=== PATIENT | female | born 2000 | race Caucasian/White ===

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

== ENCOUNTER 2019-04-28 17:49 | Emergency (ER) | payer SELFPAY ==
[~2019-04-28] VITALS: Ht 157.4 cm; Wt 81.6 kg
--- NOTE | ~2019-04-28 | EKG ---
[place], [place] ELECTROCARDIOGRAM REPORT NAME: BENJAMÍN PUENTE UNIT #: [id number] ROOM: DOCTOR: EPIPHANY DRAFT REPORT BIRTHDATE: [address] 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
[~2019-04-28 17:49] MED LIST changes: +NAPROSYN500 MG PO; +PROZAC10 MG PO; +ZANTAC 150150 MG PO
[2019-04-28 17:57] VITALS: BP 126/88
[2019-04-28 18:38] LABS: BASO % 0.3 % (0.0-1.0); EOS # 0.9 10*3/uL (0.0-0.4); HEMATOCRIT 44.4 % (37.0-47.0); HEMOGLOBIN 14.2 g/dl (12.0-16.0); LYMPH # 2.4 10*3/uL (1.3-4.4); LYMPH % 18.9 % (27.0-41.0); MEAN CELL VOLUME 87.2 fl (81.0-99.0); MEAN CORPUSCULAR HGB 27.9 pg (27.0-31.0); MEAN PLATELET VOLUME 10.2 fl (9.6-12.3); MONO # 0.6 10*3/uL (0.1-1.0); MONO % 5.1 % (3.0-9.0); NEUT # 8.6 10*3/uL (2.3-7.9); NEUT % 68.5 % (47.0-73.0); PLATELET COUNT AUTOMATED 349 10*3/uL (130-400); RED BLOOD COUNT 5.09 10*6/uL (4.10-5.10); RED CELL DISTRI WIDTH 12.8 % (0-14.5); WHITE BLOOD COUNT 12.6 10*3/uL (4.8-10.8)
[2019-04-28 18:52] LABS: INTERNATIONAL NORM RATIO 0.9 (2.0-3.5)
[2019-04-28 19:08] LABS: ALBUMIN 3.5 gm/dl (3.1-4.5); ALKALINE PHOSPHATASE 70 U/L (45-117); BUN 8 mg/dl (7-24); CHLORIDE 108 mmol/L (98-107); CREATININE 0.73 mg/dL (0.55-1.02); LIPASE 98 U/L (73-393); POTASSIUM 3.6 mmol/L (3.5-5.1); SGOT/AST 16 IU/L (3-35); SGPT/ALT 24 U/L (12-78); SODIUM 141 mmol/L (136-145); TOTAL PROTEIN 7.6 gm/dL (6.4-8.2)
[2019-04-28 19:11] LABS: TROPONIN I < 0.015 ng/ml (<0.045)
[2019-04-28] MEDS ORDERED: PEPCID20 MG PO (19:46)
[2019-04-28] MEDS ORDERED: CEPHALEXIN500 M1 PO (20:00)
== END 2019-04-28 20:05 | disposition home or self-care (01) ==
LOC: ED 17:49
PROVIDERS: Physician Assistant
DX: R07.9 Chest pain, unspecified (principal); R10.10 Upper abdominal pain, unspecified; K21.9 Gastro-esophageal reflux disease without esophagitis

== ENCOUNTER 2019-05-05 14:47 | Emergency (ER) | payer SELFPAY ==
[~2019-05-05] VITALS: Ht 157.4 cm; Wt 77.1 kg
[2019-05-05 14:47] VITALS: BP 145/94
[~2019-05-05 14:47] MED LIST changes: +CEPHALEXIN500 M1 PO; +PEPCID20 MG PO
[2019-05-05 15:46] LABS: BILIRUBIN NEGATIVE (NEGATIVE); BLOOD NEGATIVE (NEGATIVE); CLARITY CLEAR (CLEAR); COLOR YELLOW (YELLOW); GLUCOSE NEGATIVE (NEGATIVE); KETONE NEGATIVE (NEGATIVE); LEUKO ESTERASE NEGATIVE (NEGATIVE); NITRITE NEGATIVE (NEGATIVE); UROBILINOGEN 0.2 E.U./dl (0.2-1.0)
[2019-05-05 15:46] LABS: BASO % 0.3 % (0.0-1.0); EOS # 0.9 10*3/uL (0.0-0.4); EOS % 7.8 % (1.0-4.0); HEMATOCRIT 45.2 % (37.0-47.0); HEMOGLOBIN 14.5 g/dl (12.0-16.0); LYMPH # 1.9 10*3/uL (1.3-4.4); LYMPH % 17.6 % (27.0-41.0); MEAN CELL VOLUME 86.3 fl (81.0-99.0); MEAN CORPUSCULAR HGB 27.7 pg (27.0-31.0); MEAN CORPUSCULAR HGB CONC 32.1 g/dl (33.0-37.0); MEAN PLATELET VOLUME 10.4 fl (9.6-12.3); MONO # 0.5 10*3/uL (0.1-1.0); MONO % 4.7 % (3.0-9.0); NEUT # 7.6 10*3/uL (2.3-7.9); NEUT % 69.4 % (47.0-73.0); PLATELET COUNT AUTOMATED 294 10*3/uL (130-400); RED BLOOD COUNT 5.24 10*6/uL (4.10-5.10); RED CELL DISTRI WIDTH 12.8 % (0-14.5); WHITE BLOOD COUNT 10.9 10*3/uL (4.8-10.8)
[2019-05-05 15:57] LABS: MUCOUS 1+; WBC 0-2 wbc/hpf (0-5)
[2019-05-05 16:02] LABS: ALBUMIN 3.7 gm/dl (3.1-4.5); ALKALINE PHOSPHATASE 64 U/L (45-117); BUN 10 mg/dl (7-24); CHLORIDE 107 mmol/L (98-107); CREATININE 0.71 mg/dL (0.55-1.02); LIPASE 106 U/L (73-393); POTASSIUM 3.4 mmol/L (3.5-5.1); SGOT/AST 14 IU/L (3-35); SGPT/ALT 22 U/L (12-78); SODIUM 140 mmol/L (136-145); TOTAL PROTEIN 7.8 gm/dL (6.4-8.2)
== END 2019-05-05 16:47 | disposition home or self-care (01) ==
LOC: ED 14:47
PROVIDERS: Nurse Practitioner Family
DX: R10.30 Lower abdominal pain, unspecified (principal)

== ENCOUNTER 2019-06-08 22:51 | Emergency (ER) | payer SELFPAY ==
[~2019-06-08] VITALS: Ht 157.4 cm; Wt 81.6 kg
[2019-06-08 22:55] VITALS: BP 143/83
[2019-06-09] MEDS ORDERED: Motrin,Rufen800 MG PO (00:37)
== END 2019-06-09 01:20 | disposition home or self-care (01) ==
LOC: ED 22:51
DX: S20.221A Contusion of right back wall of thorax, initial encounter (principal); K21.9 Gastro-esophageal reflux disease without esophagitis; Z79.899 Other long term (current) drug therapy; Z79.2 Long term (current) use of antibiotics; W50.0XXA Accidental hit or strike by another person, initial encounter; Y93.72 Activity, wrestling; Y92.098 Other place in other non-institutional residence as the place of occurrence of the external cause; Y99.8 Other external cause status

== ENCOUNTER 2019-06-14 18:14 | Emergency (ER) | payer SELFPAY ==
[~2019-06-14] VITALS: Ht 154.9 cm; Wt 81.6 kg
[2019-06-14 18:18] VITALS: BP 142/92
== END 2019-06-14 20:33 | disposition home or self-care (01) ==
LOC: ED 18:14
DX: S63.501A Unspecified sprain of right wrist, initial encounter (principal); W06.XXXA Fall from bed, initial encounter; Y93.89 Activity, other specified; Y92.89 Other specified places as the place of occurrence of the external cause; Y99.8 Other external cause status

== ENCOUNTER 2019-06-16 21:48 | Emergency (ER) | payer SELFPAY ==
[~2019-06-16] VITALS: Ht 157.4 cm; Wt 81.6 kg
[2019-06-16 21:51] VITALS: BP 126/83
== END 2019-06-16 23:00 | disposition home or self-care (01) ==
LOC: ED 21:48
DX: M79.641 Pain in right hand (principal); F41.9 Anxiety disorder, unspecified; F32.9 Major depressive disorder, single episode, unspecified; K21.9 Gastro-esophageal reflux disease without esophagitis; Z79.899 Other long term (current) drug therapy; Z72.0 Tobacco use

== ENCOUNTER 2019-06-26 22:31 | Emergency (ER) | payer SELFPAY ==
[~2019-06-26] VITALS: Wt 86.2 kg
[2019-06-26 22:37] VITALS: BP 145/97
[2019-06-26 23:10] LABS: BASO # 0.1 10*3/uL (0.0-0.1); BASO % 0.4 % (0.0-1.0); EOS # 0.7 10*3/uL (0.0-0.4); EOS % 4.8 % (1.0-4.0); HEMOGLOBIN 13.3 g/dl (12.0-16.0); LYMPH # 3.3 10*3/uL (1.3-4.4); LYMPH % 23.6 % (27.0-41.0); MEAN CELL VOLUME 87.4 fl (81.0-99.0); MEAN CORPUSCULAR HGB 28.4 pg (27.0-31.0); MEAN CORPUSCULAR HGB CONC 32.4 g/dl (33.0-37.0); MEAN PLATELET VOLUME 10.4 fl (9.6-12.3); MONO # 0.8 10*3/uL (0.1-1.0); NEUT # 9.1 10*3/uL (2.3-7.9); NEUT % 64.9 % (47.0-73.0); PLATELET COUNT AUTOMATED 278 10*3/uL (130-400); RED BLOOD COUNT 4.69 10*6/uL (4.10-5.10); RED CELL DISTRI WIDTH 12.6 % (0-14.5); WHITE BLOOD COUNT 13.9 10*3/uL (4.8-10.8)
[2019-06-26 23:21] LABS: ALBUMIN 3.4 gm/dl (3.1-4.5); ALKALINE PHOSPHATASE 68 U/L (45-117); BUN 11 mg/dl (7-24); CHLORIDE 107 mmol/L (98-107); CREATININE 0.68 mg/dL (0.55-1.02); POTASSIUM 3.8 mmol/L (3.5-5.1); SGOT/AST 10 IU/L (3-35); SGPT/ALT 28 U/L (12-78); SODIUM 140 mmol/L (136-145); TOTAL PROTEIN 7.4 gm/dL (6.4-8.2)
[2019-06-26 23:23] LABS: BILIRUBIN NEGATIVE (NEGATIVE); BLOOD NEGATIVE (NEGATIVE); CLARITY SL CLOUDY (CLEAR); COLOR YELLOW (YELLOW); GLUCOSE NEGATIVE (NEGATIVE); KETONE NEGATIVE (NEGATIVE); LEUKO ESTERASE NEGATIVE (NEGATIVE); NITRITE NEGATIVE (NEGATIVE); SPECIFIC GRAVITY 1.015 (1.005-1.030); UROBILINOGEN 0.2 E.U./dl (0.2-1.0)
[2019-06-26 23:25] LABS: BACTERIA 2+; EPITHELIAL CELLS 30-35; WBC 0-2 wbc/hpf (0-5)
== END 2019-06-26 23:41 | disposition home or self-care (01) ==
LOC: ED 22:31
PROVIDERS: Emergency Medicine
DX: R10.9 Unspecified abdominal pain (principal); K21.9 Gastro-esophageal reflux disease without esophagitis; Z79.2 Long term (current) use of antibiotics; Z79.899 Other long term (current) drug therapy

== ENCOUNTER 2019-07-01 02:11 | Emergency (ER) | payer OTHER ==
[~2019-07-01] VITALS: Ht 157.4 cm; Wt 81.6 kg
[2019-07-01 05:49] VITALS: BP 118/74
== END 2019-07-01 06:18 | disposition home or self-care (01) ==
LOC: ED 02:11
DX: J06.9 Acute upper respiratory infection, unspecified (principal)

== ENCOUNTER 2019-07-06 21:28 | Emergency (ER) | payer OTHER ==
[~2019-07-06] VITALS: Ht 157.4 cm; Wt 81.6 kg
[2019-07-06 21:33] VITALS: BP 133/78
[2019-07-06 22:44] LABS: BASO % 0.4 % (0.0-1.0); EOS # 0.7 10*3/uL (0.0-0.4); EOS % 8.1 % (1.0-4.0); HEMATOCRIT 41.9 % (37.0-47.0); HEMOGLOBIN 13.5 g/dl (12.0-16.0); LYMPH % 36.1 % (27.0-41.0); MEAN CELL VOLUME 87.3 fl (81.0-99.0); MEAN CORPUSCULAR HGB 28.1 pg (27.0-31.0); MEAN CORPUSCULAR HGB CONC 32.2 g/dl (33.0-37.0); MEAN PLATELET VOLUME 10.1 fl (9.6-12.3); MONO # 0.5 10*3/uL (0.1-1.0); MONO % 5.9 % (3.0-9.0); NEUT # 4.1 10*3/uL (2.3-7.9); NEUT % 49.4 % (47.0-73.0); PLATELET COUNT AUTOMATED 264 10*3/uL (130-400); RED CELL DISTRI WIDTH 12.8 % (0-14.5); WHITE BLOOD COUNT 8.3 10*3/uL (4.8-10.8)
[2019-07-06 22:59] LABS: ALBUMIN 3.4 gm/dl (3.1-4.5); ALKALINE PHOSPHATASE 68 U/L (45-117); BUN 9 mg/dl (7-24); CHLORIDE 108 mmol/L (98-107); CREATININE 0.65 mg/dL (0.55-1.02); LIPASE 167 U/L (73-393); POTASSIUM 3.8 mmol/L (3.5-5.1); SGOT/AST 18 IU/L (3-35); SGPT/ALT 33 U/L (12-78); SODIUM 139 mmol/L (136-145); TOTAL PROTEIN 7.4 gm/dL (6.4-8.2)
[2019-07-06 23:16] LABS: BILIRUBIN NEGATIVE (NEGATIVE); BLOOD 3+ (NEGATIVE); CLARITY SL CLOUDY (CLEAR); COLOR YELLOW (YELLOW); GLUCOSE NEGATIVE (NEGATIVE); KETONE NEGATIVE (NEGATIVE); PH 7.5 (5.0-9.0); SPECIFIC GRAVITY 1.015 (1.005-1.030)
[2019-07-06 23:17] LABS: LEUKO ESTERASE NEGATIVE (NEGATIVE); NITRITE NEGATIVE (NEGATIVE); UROBILINOGEN 0.2 E.U./dl (0.2-1.0)
[2019-07-06 23:28] LABS: BACTERIA 1+; RBC 41-50 rbc/hpf (0-2)
[2019-07-06] MEDS ORDERED: ZOFRAN4 MG PO (23:44)
[2019-07-07] MEDS ORDERED: ZOFRAN4 MG PO (00:06)
== END 2019-07-07 00:23 | disposition home or self-care (01) ==
LOC: ED 21:28
PROVIDERS: Physician Assistant
DX: A08.4 Viral intestinal infection, unspecified (principal); K62.5 Hemorrhage of anus and rectum; K21.9 Gastro-esophageal reflux disease without esophagitis; F32.9 Major depressive disorder, single episode, unspecified; F41.9 Anxiety disorder, unspecified; Z79.899 Other long term (current) drug therapy

== ENCOUNTER 2019-07-09 22:00 | Emergency (ER) | payer OTHER ==
[~2019-07-09] VITALS: Ht 157.4 cm; Wt 81.6 kg
[~2019-07-09 22:00] MED LIST changes: +ZOFRAN4 MG PO
[2019-07-09 22:05] VITALS: BP 140/80
[2019-07-10] MEDS ORDERED: Motrin,Rufen800 MG PO (00:38)
== END 2019-07-10 00:55 | disposition home or self-care (01) ==
LOC: ED 22:00
DX: S09.90XA Unspecified injury of head, initial encounter (principal); F41.9 Anxiety disorder, unspecified; F32.9 Major depressive disorder, single episode, unspecified; K21.9 Gastro-esophageal reflux disease without esophagitis; Z79.899 Other long term (current) drug therapy; W22.8XXA Striking against or struck by other objects, initial encounter; Y93.89 Activity, other specified; Y92.89 Other specified places as the place of occurrence of the external cause; Y99.8 Other external cause status

== ENCOUNTER 2019-07-14 01:20 | Emergency (ER) | payer OTHER ==
[~2019-07-14] VITALS: Ht 157.4 cm; Wt 81.6 kg
[2019-07-14 01:21] VITALS: BP 131/77
[2019-07-14] MEDS ORDERED: Motrin,Rufen800 MG PO (03:08)
== END 2019-07-14 05:01 | disposition home or self-care (01) ==
LOC: ED 01:20
DX: S80.02XA Contusion of left knee, initial encounter (principal); K21.9 Gastro-esophageal reflux disease without esophagitis; Z79.899 Other long term (current) drug therapy; Z79.2 Long term (current) use of antibiotics; W01.0XXA Fall on same level from slipping, tripping and stumbling without subsequent striking against object, initial encounter; Y93.E8 Activity, other personal hygiene; Y92.091 Bathroom in other non-institutional residence as the place of occurrence of the external cause; Y99.8 Other external cause status

== ENCOUNTER 2019-07-24 01:12 | Emergency (ER) | payer OTHER ==
[~2019-07-24] VITALS: Ht 157.4 cm; Wt 83.5 kg
[2019-07-24 01:17] VITALS: BP 135/83
== END 2019-07-24 02:27 | disposition home or self-care (01) ==
LOC: ED 01:12
DX: Z32.02 Encounter for pregnancy test, result negative (principal)

== ENCOUNTER → 2019-08-06 | Outpatient (CLI) | payer OTHER ==
[~2019-08-06] MED LIST changes: +ATIVAN1 MG PO; +CITALOPRAM HYDR10 MG PO; +HYDROXYZINE PAM25 M1 PO; +NAPROSYN EC375 MG PO; +TYLENOL325 M1 PO
== END | disposition home or self-care (01) ==
LOC: RESCLI 00:44
DX: K21.9 Gastro-esophageal reflux disease without esophagitis (principal); M25.562 Pain in left knee; F41.9 Anxiety disorder, unspecified; M21.069 Valgus deformity, not elsewhere classified, unspecified knee; H50.9 Unspecified strabismus; F17.200 Nicotine dependence, unspecified, uncomplicated; Z98.890 Other specified postprocedural states; Z79.899 Other long term (current) drug therapy

== ENCOUNTER 2019-08-09 21:39 | Emergency (ER) | payer OTHER ==
[~2019-08-09 21:39] MED LIST changes: -ATIVAN1 MG PO; -CITALOPRAM HYDR10 MG PO; -HYDROXYZINE PAM25 M1 PO; -NAPROSYN EC375 MG PO; -TYLENOL325 M1 PO
[2019-08-09 21:45] VITALS: BP 135/74
[2019-08-09 22:58] LABS: BASO % 0.3 % (0.0-1.0); EOS # 0.7 10*3/uL (0.0-0.4); EOS % 5.3 % (1.0-4.0); HEMATOCRIT 37.6 % (37.0-47.0); HEMOGLOBIN 12.2 g/dl (12.0-16.0); LYMPH # 2.6 10*3/uL (1.3-4.4); LYMPH % 19.7 % (27.0-41.0); MEAN CELL VOLUME 86.2 fl (81.0-99.0); MEAN CORPUSCULAR HGB CONC 32.4 g/dl (33.0-37.0); MEAN PLATELET VOLUME 9.9 fl (9.6-12.3); MONO # 0.7 10*3/uL (0.1-1.0); MONO % 5.6 % (3.0-9.0); NEUT # 9.2 10*3/uL (2.3-7.9); NEUT % 68.9 % (47.0-73.0); PLATELET COUNT AUTOMATED 299 10*3/uL (130-400); RED BLOOD COUNT 4.36 10*6/uL (4.10-5.10); RED CELL DISTRI WIDTH 12.8 % (0-14.5); WHITE BLOOD COUNT 13.3 10*3/uL (4.8-10.8)
[2019-08-09 23:14] LABS: BUN 12 mg/dl (7-24); CHLORIDE 107 mmol/L (98-107); CREATININE 0.71 mg/dL (0.55-1.02); POTASSIUM 3.6 mmol/L (3.5-5.1); SODIUM 137 mmol/L (136-145)
[2019-08-09 23:17] LABS: TROPONIN I < 0.015 ng/ml (<0.045)
[2019-08-10] MEDS ORDERED: TYLENOL325 M1 PO (00:08)
[2019-08-10] MEDS ORDERED: NAPROSYN EC375 MG PO (00:08)
== END 2019-08-10 00:07 | disposition home or self-care (01) ==
LOC: ED 21:39
PROVIDERS: Emergency Medicine Emergency Medical Services
DX: M94.0 Chondrocostal junction syndrome [Tietze] (principal); K21.9 Gastro-esophageal reflux disease without esophagitis; F17.200 Nicotine dependence, unspecified, uncomplicated; Z79.899 Other long term (current) drug therapy; Z79.2 Long term (current) use of antibiotics; Z98.890 Other specified postprocedural states

== ENCOUNTER 2019-08-11 17:02 | Emergency (ER) | payer OTHER ==
[~2019-08-11] VITALS: Ht 157.4 cm; Wt 99.8 kg
[~2019-08-11 17:02] MED LIST changes: +NAPROSYN EC375 MG PO; +TYLENOL325 M1 PO
[2019-08-11 17:06] VITALS: BP 128/75
== END 2019-08-11 18:38 | disposition home or self-care (01) ==
LOC: ED 17:02
DX: M79.662 Pain in left lower leg (principal); E66.9 Obesity, unspecified; K21.9 Gastro-esophageal reflux disease without esophagitis

== ENCOUNTER 2019-08-17 02:51 | Emergency (ER) | payer OTHER ==
[~2019-08-17] VITALS: Ht 157.4 cm; Wt 94.8 kg
[2019-08-17 02:53] VITALS: BP 162/51
[2019-08-17] MEDS ORDERED: HYDROXYZINE PAM25 M1 PO (02:54)
[2019-08-17] MEDS ORDERED: CITALOPRAM HYDR10 MG PO (02:54)
[2019-08-17 03:32] LABS: BASO % 0.4 % (0.0-1.0); EOS % 10.4 % (1.0-4.0); HEMATOCRIT 42.7 % (37.0-47.0); HEMOGLOBIN 13.8 g/dl (12.0-16.0); LYMPH # 3.1 10*3/uL (1.3-4.4); LYMPH % 30.8 % (27.0-41.0); MEAN CELL VOLUME 86.3 fl (81.0-99.0); MEAN CORPUSCULAR HGB 27.9 pg (27.0-31.0); MEAN CORPUSCULAR HGB CONC 32.3 g/dl (33.0-37.0); MEAN PLATELET VOLUME 9.9 fl (9.6-12.3); MONO # 0.5 10*3/uL (0.1-1.0); MONO % 5.3 % (3.0-9.0); NEUT # 5.3 10*3/uL (2.3-7.9); NEUT % 52.9 % (47.0-73.0); PLATELET COUNT AUTOMATED 313 10*3/uL (130-400); RED BLOOD COUNT 4.95 10*6/uL (4.10-5.10); RED CELL DISTRI WIDTH 12.6 % (0-14.5); WHITE BLOOD COUNT 9.9 10*3/uL (4.8-10.8)
[2019-08-17 03:47] LABS: ACETAMINOPHEN (TYLENOL) < 5.0 ug/ml (10-30); ALBUMIN 3.8 gm/dl (3.1-4.5); ALKALINE PHOSPHATASE 62 U/L (45-117); BUN 10 mg/dl (7-24); CHLORIDE 106 mmol/L (98-107); CREATININE 0.66 mg/dL (0.55-1.02); POTASSIUM 3.4 mmol/L (3.5-5.1); SGOT/AST 17 IU/L (3-35); SGPT/ALT 31 U/L (12-78); SODIUM 138 mmol/L (136-145); TOTAL PROTEIN 7.9 gm/dL (6.4-8.2)
[2019-08-17 03:52] LABS: ETHYL ALCOHOL < 3.0 mg/dl (<3)
[2019-08-17 04:02] LABS: URINE AMPHETAMINES < 1000 (1000ng/ml); URINE BARBITURATES < 200 (200ng/ml); URINE BENZODIAZEPINES < 200 (200ng/ml); URINE CANNABINOIDS (THC) < 50 (50ng/ml); URINE COCAINE < 300 (300ng/ml); URINE METHADONE < 300 (300ng/ml); URINE OPIATES < 300 (300ng/ml)
[2019-08-17] MEDS ORDERED: ATIVAN1 MG PO (04:06)
[2019-08-17 04:09] LABS: URINE PHENCYCLIDINE < 25 (25ng/ml)
[2019-08-17 04:14] LABS: BILIRUBIN NEGATIVE (NEGATIVE); BLOOD NEGATIVE (NEGATIVE); CLARITY CLEAR (CLEAR); COLOR YELLOW (YELLOW); GLUCOSE NEGATIVE (NEGATIVE); KETONE NEGATIVE (NEGATIVE); LEUKO ESTERASE NEGATIVE (NEGATIVE); NITRITE NEGATIVE (NEGATIVE); RBC 0-2 rbc/hpf (0-2); SPECIFIC GRAVITY 1.015 (1.005-1.030); UROBILINOGEN 0.2 E.U./dl (0.2-1.0); WBC 0-2 wbc/hpf (0-5)
== END 2019-08-17 04:14 ==
LOC: ED 02:51
PROVIDERS: Emergency Medicine Emergency Medical Services
DX: F41.0 Panic disorder [episodic paroxysmal anxiety] (principal); F17.200 Nicotine dependence, unspecified, uncomplicated; Z79.899 Other long term (current) drug therapy

== ENCOUNTER 2019-09-15 00:25 | Emergency (ER) | payer OTHER ==
[~2019-09-15] VITALS: Ht 157.4 cm; Wt 96.6 kg
[~2019-09-15 00:25] MED LIST changes: +ATIVAN1 MG PO; +CITALOPRAM HYDR10 MG PO; +HYDROXYZINE PAM25 M1 PO
[2019-09-15 00:33] VITALS: BP 133/82
[2019-09-15 00:49] LABS: CLARITY CLEAR (CLEAR); COLOR YELLOW (YELLOW)
[2019-09-15 00:53] LABS: BILIRUBIN NEGATIVE (NEGATIVE); BLOOD TRACE-INTACT (NEGATIVE); GLUCOSE NEGATIVE (NEGATIVE); KETONE NEGATIVE (NEGATIVE); LEUKO ESTERASE TRACE (NEGATIVE); NITRITE NEGATIVE (NEGATIVE); SPECIFIC GRAVITY 1.025 (1.005-1.030); UROBILINOGEN 0.2 E.U./dl (0.2-1.0)
[2019-09-15 00:57] LABS: BACTERIA 1+
[2019-09-15 00:58] LABS: MUCOUS 1+
[2019-09-15] MEDS ORDERED: MACROBID100 M1 PO (01:10)
== END 2019-09-15 01:25 | disposition home or self-care (01) ==
LOC: ED 00:25
PROVIDERS: Emergency Medicine Emergency Medical Services
DX: R82.71 Bacteriuria (principal); R10.30 Lower abdominal pain, unspecified; K21.9 Gastro-esophageal reflux disease without esophagitis; Z79.899 Other long term (current) drug therapy; Z98.890 Other specified postprocedural states

== ENCOUNTER 2019-09-17 19:40 | Emergency (ER) | payer OTHER ==
[~2019-09-17] VITALS: Ht 157.4 cm; Wt 99.8 kg
[~2019-09-17 19:40] MED LIST changes: +MACROBID100 M1 PO
[2019-09-17 20:52] LABS: BILIRUBIN NEGATIVE (NEGATIVE); CLARITY CLEAR (CLEAR); COLOR YELLOW (YELLOW); GLUCOSE NEGATIVE (NEGATIVE); KETONE NEGATIVE (NEGATIVE)
[2019-09-17 20:53] LABS: BACTERIA TRACE; BLOOD NEGATIVE (NEGATIVE); EPITHELIAL CELLS 16-20; LEUKO ESTERASE NEGATIVE (NEGATIVE); NITRITE NEGATIVE (NEGATIVE); UROBILINOGEN 0.2 E.U./dl (0.2-1.0)
[2019-09-18] MEDS ORDERED: PROTONIX40 MG PO (21:51)
== END 2019-09-17 21:06 | disposition home or self-care (01) ==
LOC: ED 19:40
PROVIDERS: Emergency Medicine
DX: R19.7 Diarrhea, unspecified (principal); R11.10 Vomiting, unspecified; F41.9 Anxiety disorder, unspecified; F32.9 Major depressive disorder, single episode, unspecified; K21.9 Gastro-esophageal reflux disease without esophagitis; F17.200 Nicotine dependence, unspecified, uncomplicated; Z79.899 Other long term (current) drug therapy; Z79.2 Long term (current) use of antibiotics

== ENCOUNTER 2019-09-18 20:48 | Emergency (ER) | payer OTHER ==
[~2019-09-18] VITALS: Wt 97.5 kg
[2019-09-18 20:56] VITALS: BP 138/81
[2019-09-18 21:31] LABS: BASO % 0.4 % (0.0-1.0); EOS % 9.1 % (1.0-4.0); HEMATOCRIT 39.1 % (37.0-47.0); LYMPH # 2.9 10*3/uL (1.3-4.4); LYMPH % 25.9 % (27.0-41.0); MEAN CELL VOLUME 85.6 fl (81.0-99.0); MEAN CORPUSCULAR HGB 27.8 pg (27.0-31.0); MEAN CORPUSCULAR HGB CONC 32.5 g/dl (33.0-37.0); MEAN PLATELET VOLUME 9.8 fl (9.6-12.3); MONO # 0.7 10*3/uL (0.1-1.0); NEUT # 6.6 10*3/uL (2.3-7.9); NEUT % 58.3 % (47.0-73.0); PLATELET COUNT AUTOMATED 302 10*3/uL (130-400); RED BLOOD COUNT 4.57 10*6/uL (4.10-5.10); RED CELL DISTRI WIDTH 12.7 % (0-14.5); WHITE BLOOD COUNT 11.4 10*3/uL (4.8-10.8)
[2019-09-18 21:47] LABS: ALBUMIN 3.3 gm/dl (3.1-4.5); ALKALINE PHOSPHATASE 64 U/L (45-117); BUN 9 mg/dl (7-24); CHLORIDE 106 mmol/L (98-107); CREATININE 0.72 mg/dL (0.55-1.02); LIPASE 126 U/L (73-393); POTASSIUM 3.6 mmol/L (3.5-5.1); SGOT/AST 20 IU/L (3-35); SGPT/ALT 40 U/L (12-78); SODIUM 138 mmol/L (136-145); TOTAL PROTEIN 7.5 gm/dL (6.4-8.2)
[2019-09-18] MEDS ORDERED: PROTONIX40 MG PO (21:51)
== END 2019-09-18 21:53 | disposition home or self-care (01) ==
LOC: ED 20:48
PROVIDERS: Emergency Medicine
DX: K29.70 Gastritis, unspecified, without bleeding (principal); F41.9 Anxiety disorder, unspecified; F32.9 Major depressive disorder, single episode, unspecified; K21.9 Gastro-esophageal reflux disease without esophagitis; Z79.899 Other long term (current) drug therapy

== ENCOUNTER 2019-09-26 20:05 | Emergency (ER) | payer OTHER ==
[~2019-09-26] VITALS: Wt 99.8 kg
[~2019-09-26 20:05] MED LIST changes: +PROTONIX40 MG PO
[2019-09-26 20:20] VITALS: BP 135/85
== END 2019-09-26 20:53 | disposition home or self-care (01) ==
LOC: ED 20:05
DX: S09.90XA Unspecified injury of head, initial encounter (principal); F41.9 Anxiety disorder, unspecified; F32.9 Major depressive disorder, single episode, unspecified; K21.9 Gastro-esophageal reflux disease without esophagitis; Z79.899 Other long term (current) drug therapy; W22.09XA Striking against other stationary object, initial encounter; Y93.89 Activity, other specified; Y92.89 Other specified places as the place of occurrence of the external cause; Y99.8 Other external cause status

== ENCOUNTER 2019-10-08 23:00 | Emergency (ER) | payer OTHER ==
[~2019-10-08] VITALS: Ht 157.4 cm; Wt 101.6 kg
[2019-10-08 23:01] VITALS: BP 143/58
== END 2019-10-09 00:47 | disposition home or self-care (01) ==
LOC: ED 23:00
DX: F41.0 Panic disorder [episodic paroxysmal anxiety] (principal); F41.9 Anxiety disorder, unspecified; F17.200 Nicotine dependence, unspecified, uncomplicated; Z79.899 Other long term (current) drug therapy; Z32.02 Encounter for pregnancy test, result negative

== ENCOUNTER 2019-10-20 00:05 | Emergency (ER) | payer OTHER ==
[~2019-10-20] VITALS: Ht 157.4 cm; Wt 99.8 kg
[2019-10-20 01:37] LABS: BILIRUBIN NEGATIVE (NEGATIVE); BLOOD NEGATIVE (NEGATIVE); CLARITY CLEAR (CLEAR); COLOR YELLOW (YELLOW); GLUCOSE NEGATIVE (NEGATIVE); KETONE NEGATIVE (NEGATIVE); LEUKO ESTERASE 1+ (NEGATIVE); NITRITE NEGATIVE (NEGATIVE); PH 7.5 (5.0-9.0); SPECIFIC GRAVITY 1.005 (1.005-1.030); UROBILINOGEN 0.2 E.U./dl (0.2-1.0)
[2019-10-20 01:41] LABS: BACTERIA 1+; EPITHELIAL CELLS 21-30
[2019-10-20] MEDS ORDERED: MACROBID100 M1 PO (01:44)
[2019-10-20 01:49] VITALS: BP 126/78
== END 2019-10-20 01:55 | disposition home or self-care (01) ==
LOC: ED 00:05
PROVIDERS: Emergency Medicine Emergency Medical Services
DX: N39.0 Urinary tract infection, site not specified (principal); K21.9 Gastro-esophageal reflux disease without esophagitis; F32.9 Major depressive disorder, single episode, unspecified; F41.9 Anxiety disorder, unspecified; F17.200 Nicotine dependence, unspecified, uncomplicated; Z79.899 Other long term (current) drug therapy; Z98.890 Other specified postprocedural states; M79.89 Other specified soft tissue disorders

== ENCOUNTER 2019-10-26 14:42 | Emergency (ER) | payer OTHER ==
[~2019-10-26] VITALS: Ht 157.4 cm; Wt 99.8 kg
[2019-10-26 14:50] VITALS: BP 118/84
== END 2019-10-26 15:20 | disposition home or self-care (01) ==
LOC: ED 14:42
DX: M77.8 Other enthesopathies, not elsewhere classified (principal); Z79.899 Other long term (current) drug therapy

== ENCOUNTER 2019-10-31 02:50 | Emergency (ER) | payer OTHER ==
[~2019-10-31] VITALS: Ht 157.4 cm; Wt 99.8 kg
[2019-10-31 02:54] VITALS: BP 133/89
== END 2019-10-31 03:30 | disposition left against medical advice (07) ==
LOC: ED 02:50
DX: R42 Dizziness and giddiness (principal); K21.9 Gastro-esophageal reflux disease without esophagitis; Z79.899 Other long term (current) drug therapy

== ENCOUNTER 2019-11-04 16:25 | Emergency (ER) | payer OTHER ==
[~2019-11-04] VITALS: Ht 157.4 cm; Wt 99.8 kg
[2019-11-04 16:33] VITALS: BP 136/98
[2019-11-04 17:15] LABS: BASO # 0.1 10*3/uL (0.0-0.1); BASO % 0.4 % (0.0-1.0); EOS # 1.2 10*3/uL (0.0-0.4); EOS % 9.5 % (1.0-4.0); HEMATOCRIT 39.8 % (37.0-47.0); LYMPH # 2.9 10*3/uL (1.3-4.4); LYMPH % 23.9 % (27.0-41.0); MEAN CELL VOLUME 84.9 fl (81.0-99.0); MEAN CORPUSCULAR HGB 28.1 pg (27.0-31.0); MEAN CORPUSCULAR HGB CONC 33.2 g/dl (33.0-37.0); MEAN PLATELET VOLUME 9.6 fl (9.6-12.3); MONO # 0.8 10*3/uL (0.1-1.0); MONO % 6.1 % (3.0-9.0); NEUT # 7.4 10*3/uL (2.3-7.9); NEUT % 59.9 % (47.0-73.0); PLATELET COUNT AUTOMATED 299 10*3/uL (130-400); RED BLOOD COUNT 4.69 10*6/uL (4.10-5.10); WHITE BLOOD COUNT 12.3 10*3/uL (4.8-10.8)
[2019-11-04 17:30] LABS: ALBUMIN 3.2 gm/dl (3.1-4.5); ALKALINE PHOSPHATASE 69 U/L (45-117); BUN 10 mg/dl (7-24); CHLORIDE 107 mmol/L (98-107); CREATININE 0.68 mg/dL (0.55-1.02); POTASSIUM 3.7 mmol/L (3.5-5.1); SGOT/AST 21 IU/L (3-35); SGPT/ALT 37 U/L (12-78); SODIUM 139 mmol/L (136-145); TOTAL PROTEIN 7.2 gm/dL (6.4-8.2)
[2019-11-04 17:50] LABS: URINE AMPHETAMINES < 1000 (1000ng/ml); URINE BARBITURATES < 200 (200ng/ml); URINE BENZODIAZEPINES < 200 (200ng/ml); URINE CANNABINOIDS (THC) < 50 (50ng/ml); URINE COCAINE < 300 (300ng/ml); URINE METHADONE < 300 (300ng/ml); URINE OPIATES < 300 (300ng/ml)
[2019-11-04 18:08] LABS: BILIRUBIN NEGATIVE (NEGATIVE); CLARITY SL CLOUDY (CLEAR); COLOR YELLOW (YELLOW); GLUCOSE NEGATIVE (NEGATIVE); KETONE NEGATIVE (NEGATIVE); SPECIFIC GRAVITY 1.005 (1.005-1.030)
[2019-11-04 18:09] LABS: BACTERIA 2+; BLOOD TRACE-INTACT (NEGATIVE); EPITHELIAL CELLS TNTC; LEUKO ESTERASE NEGATIVE (NEGATIVE); NITRITE NEGATIVE (NEGATIVE); PH 8.5 (5.0-9.0); UROBILINOGEN 0.2 E.U./dl (0.2-1.0)
[2019-11-04] MEDS ORDERED: FLONASE ALLERG9.9 ML NAS (18:12)
[2019-11-04] MEDS ORDERED: AUGMENTIN 875-875 MG PO (18:12)
[2019-11-04 18:18] LABS: URINE PHENCYCLIDINE < 25 (25ng/ml)
== END 2019-11-04 19:09 | disposition home or self-care (01) ==
LOC: ED 16:25
PROVIDERS: Nurse Practitioner Family
DX: J01.90 Acute sinusitis, unspecified (principal); R42 Dizziness and giddiness; T45.0X5A Adverse effect of antiallergic and antiemetic drugs, initial encounter; K21.9 Gastro-esophageal reflux disease without esophagitis; Y92.89 Other specified places as the place of occurrence of the external cause

== ENCOUNTER 2019-11-07 02:32 | Emergency (ER) | payer OTHER ==
[~2019-11-07] VITALS: Ht 157.4 cm; Wt 113.4 kg
[~2019-11-07 02:32] MED LIST changes: +AUGMENTIN 875-875 MG PO; +FLONASE ALLERG9.9 ML NAS
[2019-11-07 02:37] VITALS: BP 134/84
== END 2019-11-07 03:27 | disposition home or self-care (01) ==
LOC: ED 02:32
DX: F41.9 Anxiety disorder, unspecified (principal); K21.9 Gastro-esophageal reflux disease without esophagitis; Z79.899 Other long term (current) drug therapy

== ENCOUNTER 2019-11-09 23:39 | Emergency (ER) | payer OTHER ==
[2019-11-09 23:44] VITALS: BP 137/66
[2019-11-10 00:35] LABS: CLARITY SL CLOUDY (CLEAR); COLOR YELLOW (YELLOW)
[2019-11-10 00:36] LABS: BILIRUBIN NEGATIVE (NEGATIVE); BLOOD 1+ (NEGATIVE); GLUCOSE NEGATIVE (NEGATIVE); KETONE NEGATIVE (NEGATIVE); NITRITE NEGATIVE (NEGATIVE); PH 6.5 (5.0-9.0); SPECIFIC GRAVITY 1.025 (1.005-1.030); UROBILINOGEN 0.2 E.U./dl (0.2-1.0)
[2019-11-10 00:37] LABS: LEUKO ESTERASE 2+ (NEGATIVE)
[2019-11-10 00:42] LABS: BACTERIA 4+; EPITHELIAL CELLS TNTC; WBC TNTC wbc/hpf (0-5)
[2019-11-10] MEDS ORDERED: MACROBID100 M1 PO (00:51)
[2019-11-10] MEDS ORDERED: PEPCID20 MG PO (00:51)
== END 2019-11-10 01:37 | disposition home or self-care (01) ==
LOC: ED 23:39
PROVIDERS: Emergency Medicine Emergency Medical Services
DX: N39.0 Urinary tract infection, site not specified (principal); F41.9 Anxiety disorder, unspecified; F32.9 Major depressive disorder, single episode, unspecified; K21.9 Gastro-esophageal reflux disease without esophagitis; Z88.8 Allergy status to other drugs, medicaments and biological substances; Z79.899 Other long term (current) drug therapy

== ENCOUNTER → 2019-11-09 | Emergency (ER) | payer OTHER ==
[~2019-11-09] VITALS: Ht 157.4 cm; Wt 99.8 kg
[2019-11-09 14:15] VITALS: BP 104/54
== END ==
LOC: ED 13:55
DX: R11.2 Nausea with vomiting, unspecified (principal); Z53.21 Procedure and treatment not carried out due to patient leaving prior to being seen by health care provider

== ENCOUNTER 2019-11-13 20:50 | Emergency (ER) | payer OTHER ==
[2019-11-13 20:59] VITALS: BP 136/78
[2019-11-13 22:27] LABS: HEMATOCRIT 38.9 % (37.0-47.0); MEAN CELL VOLUME 86.6 fl (81.0-99.0); MEAN CORPUSCULAR HGB 27.6 pg (27.0-31.0); MEAN CORPUSCULAR HGB CONC 31.9 g/dl (33.0-37.0); MEAN PLATELET VOLUME 9.7 fl (9.6-12.3); PLATELET COUNT AUTOMATED 227 10*3/uL (130-400); RED BLOOD COUNT 4.49 10*6/uL (4.10-5.10); RED CELL DISTRI WIDTH 13.2 % (0-14.5); WHITE BLOOD COUNT 6.7 10*3/uL (4.8-10.8)
[2019-11-13 22:38] LABS: BUN 12 mg/dl (7-24); CHLORIDE 109 mmol/L (98-107); CREATININE 0.83 mg/dL (0.55-1.02); POTASSIUM 3.7 mmol/L (3.5-5.1); SODIUM 141 mmol/L (136-145)
[2019-11-13 22:46] LABS: ATYPICAL LYMPHS 5 % (0-0); BASOPHILS 1 % (0-1); PLATELET SUFFICIENCY NORMAL (NORMAL); TOTAL CELLS COUNTED 100 #CELLS
[2019-11-13 23:29] LABS: BILIRUBIN NEGATIVE (NEGATIVE); BLOOD NEGATIVE (NEGATIVE); CLARITY CLEAR (CLEAR); COLOR YELLOW (YELLOW); GLUCOSE NEGATIVE (NEGATIVE); KETONE NEGATIVE (NEGATIVE); LEUKO ESTERASE NEGATIVE (NEGATIVE); NITRITE NEGATIVE (NEGATIVE); PH 6.5 (5.0-9.0); UROBILINOGEN 0.2 E.U./dl (0.2-1.0)
[2019-11-13 23:34] LABS: BACTERIA TRACE; EPITHELIAL CELLS 21-30
== END 2019-11-14 00:56 | disposition home or self-care (01) ==
LOC: ED 20:50
PROVIDERS: Emergency Medicine
DX: R42 Dizziness and giddiness (principal); F41.9 Anxiety disorder, unspecified; R53.1 Weakness; K21.9 Gastro-esophageal reflux disease without esophagitis; F17.200 Nicotine dependence, unspecified, uncomplicated; Z88.8 Allergy status to other drugs, medicaments and biological substances; Z79.899 Other long term (current) drug therapy

== ENCOUNTER 2019-11-25 15:59 | Emergency (ER) | payer OTHER ==
[~2019-11-25] VITALS: Wt 99.8 kg
[2019-11-25 16:04] VITALS: BP 125/69
== END 2019-11-25 16:38 | disposition home or self-care (01) ==
LOC: ED 15:59
DX: S51.812A Laceration without foreign body of left forearm, initial encounter (principal); E66.9 Obesity, unspecified; F17.200 Nicotine dependence, unspecified, uncomplicated; Z88.8 Allergy status to other drugs, medicaments and biological substances; Z79.899 Other long term (current) drug therapy; W45.8XXA Other foreign body or object entering through skin, initial encounter; Y93.89 Activity, other specified; Y92.89 Other specified places as the place of occurrence of the external cause; Y99.8 Other external cause status

== ENCOUNTER 2019-12-22 23:29 | Emergency (ER) | payer OTHER ==
[~2019-12-22] VITALS: Ht 165.1 cm; Wt 81.6 kg
== END 2019-12-23 02:13 | disposition home or self-care (01) ==
LOC: ED 23:29
DX: S80.01XA Contusion of right knee, initial encounter (principal); Z88.8 Allergy status to other drugs, medicaments and biological substances; Z79.899 Other long term (current) drug therapy; W19.XXXA Unspecified fall, initial encounter; Y93.89 Activity, other specified; Y92.89 Other specified places as the place of occurrence of the external cause; Y99.8 Other external cause status

== ENCOUNTER 2019-12-27 02:12 | Emergency (ER) | payer OTHER ==
[~2019-12-27] VITALS: Ht 157.4 cm; Wt 101.7 kg
[2019-12-27 02:12] VITALS: BP 137/77
== END 2019-12-27 02:48 | disposition home or self-care (01) ==
LOC: ED 02:12
DX: S00.93XA Contusion of unspecified part of head, initial encounter (principal); R42 Dizziness and giddiness; F17.200 Nicotine dependence, unspecified, uncomplicated; Z88.8 Allergy status to other drugs, medicaments and biological substances; Z79.899 Other long term (current) drug therapy; W22.8XXA Striking against or struck by other objects, initial encounter; Y93.89 Activity, other specified; Y92.89 Other specified places as the place of occurrence of the external cause; Y99.8 Other external cause status

== ENCOUNTER 2020-01-23 15:25 | Emergency (ER) | payer OTHER ==
[~2020-01-23] VITALS: Ht 157.4 cm; Wt 97.5 kg
[2020-01-23 15:29] VITALS: BP 142/89
== END 2020-01-23 17:34 | disposition home or self-care (01) ==
LOC: ED 15:25
DX: S80.11XA Contusion of right lower leg, initial encounter (principal); F17.200 Nicotine dependence, unspecified, uncomplicated; Z88.8 Allergy status to other drugs, medicaments and biological substances; Z79.899 Other long term (current) drug therapy; W20.8XXA Other cause of strike by thrown, projected or falling object, initial encounter; Y93.89 Activity, other specified; Y92.89 Other specified places as the place of occurrence of the external cause; Y99.8 Other external cause status

== ENCOUNTER 2020-01-25 22:22 | Emergency (ER) | payer OTHER ==
[2020-01-25 22:24] VITALS: BP 122/59
[2020-01-25] MEDS ORDERED: Motrin,Rufen800 MG PO (23:07)
== END 2020-01-25 23:38 | disposition home or self-care (01) ==
LOC: ED 22:22
DX: S86.912A Strain of unspecified muscle(s) and tendon(s) at lower leg level, left leg, initial encounter (principal); Z88.8 Allergy status to other drugs, medicaments and biological substances; Z79.899 Other long term (current) drug therapy; W18.39XA Other fall on same level, initial encounter; Y93.89 Activity, other specified; Y92.89 Other specified places as the place of occurrence of the external cause; Y99.8 Other external cause status

== ENCOUNTER 2020-02-10 22:40 | Emergency (ER) | payer OTHER ==
[~2020-02-10] VITALS: Ht 157.4 cm; Wt 102.1 kg
[2020-02-10 22:50] VITALS: BP 126/80
[2020-02-10 23:14] LABS: BASO # 0.1 10*3/uL (0.0-0.1); BASO % 0.4 % (0.0-1.0); EOS # 1.2 10*3/uL (0.0-0.4); EOS % 8.3 % (1.0-4.0); HEMATOCRIT 39.4 % (37.0-47.0); LYMPH # 3.5 10*3/uL (1.3-4.4); LYMPH % 24.8 % (27.0-41.0); MEAN CELL VOLUME 81.1 fl (81.0-99.0); MEAN CORPUSCULAR HGB 26.1 pg (27.0-31.0); MEAN CORPUSCULAR HGB CONC 32.2 g/dl (33.0-37.0); MEAN PLATELET VOLUME 9.7 fl (9.6-12.3); MONO # 0.7 10*3/uL (0.1-1.0); MONO % 4.9 % (3.0-9.0); NEUT # 8.6 10*3/uL (2.3-7.9); NEUT % 61.3 % (47.0-73.0); PLATELET COUNT AUTOMATED 345 10*3/uL (130-400); RED BLOOD COUNT 4.86 10*6/uL (4.10-5.10); RED CELL DISTRI WIDTH 12.6 % (0-14.5)
[2020-02-10 23:31] LABS: ALBUMIN 3.1 gm/dl (3.1-4.5); ALKALINE PHOSPHATASE 63 U/L (45-117); BUN 11 mg/dl (7-24); CHLORIDE 107 mmol/L (98-107); CREATININE 0.61 mg/dL (0.55-1.02); POTASSIUM 3.7 mmol/L (3.5-5.1); SGOT/AST 18 IU/L (3-35); SGPT/ALT 29 U/L (12-78); SODIUM 139 mmol/L (136-145); TOTAL PROTEIN 7.2 gm/dL (6.4-8.2)
[2020-02-10 23:35] LABS: URINE AMPHETAMINES < 1000 (1000ng/ml); URINE BARBITURATES < 200 (200ng/ml); URINE BENZODIAZEPINES < 200 (200ng/ml); URINE CANNABINOIDS (THC) < 50 (50ng/ml); URINE COCAINE < 300 (300ng/ml); URINE METHADONE < 300 (300ng/ml); URINE OPIATES < 300 (300ng/ml)
[2020-02-10 23:39] LABS: URINE PHENCYCLIDINE < 25 (25ng/ml)
[2020-02-10 23:39] LABS: ACETAMINOPHEN (TYLENOL) < 5.0 ug/ml (10-30); BETA-HCG, QUANT < 1.0 mIU/mL (1-3); ETHYL ALCOHOL < 3.0 mg/dl (<3)
[2020-02-10 23:40] LABS: BILIRUBIN NEGATIVE; BLOOD NEGATIVE (NEGATIVE); CLARITY CLEAR (CLEAR); COLOR YELLOW (YELLOW); GLUCOSE NEGATIVE; KETONE NEGATIVE; LEUKO ESTERASE TRACE (NEGATIVE); NITRITE NEGATIVE (NEGATIVE); UROBILINOGEN 0.2 E.U./dl (0.0-1.0)
[2020-02-10 23:41] LABS: BACTERIA 1+
== END 2020-02-11 09:48 | disposition home or self-care (01) ==
LOC: ED 22:40
PROVIDERS: Nurse Practitioner Family
DX: F39 Unspecified mood [affective] disorder (principal); F17.200 Nicotine dependence, unspecified, uncomplicated; Z88.8 Allergy status to other drugs, medicaments and biological substances; Z79.899 Other long term (current) drug therapy

== ENCOUNTER 2020-02-15 16:13 | Emergency (ER) | payer OTHER ==
[~2020-02-15] VITALS: Ht 157.4 cm; Wt 98.4 kg
[2020-02-15 16:17] VITALS: BP 114/45
[2020-02-15] MEDS ORDERED: AMOXICILLIN500 M2 PO (16:28)
[2020-02-15] MEDS ORDERED: FLONASE ALLERG9.9 ML NAS (16:28)
[2020-02-15] MEDS ORDERED: ROBITUSSIN DM 105 ML PO (16:28)
[2020-02-16] MEDS ORDERED: PROVENTIL HFA6.7 GM INH (21:02)
[2020-02-16] MEDS ORDERED: PREDNISONE20 M1 PO (21:02)
[2020-02-16] MEDS ORDERED: TESSALON PERLE100 M1 PO (21:02)
== END 2020-02-15 16:32 | disposition home or self-care (01) ==
LOC: ED 16:13
DX: J01.90 Acute sinusitis, unspecified (principal); K21.9 Gastro-esophageal reflux disease without esophagitis; F32.9 Major depressive disorder, single episode, unspecified; F41.9 Anxiety disorder, unspecified; F17.210 Nicotine dependence, cigarettes, uncomplicated; Z88.8 Allergy status to other drugs, medicaments and biological substances; Z79.899 Other long term (current) drug therapy

== ENCOUNTER 2020-02-16 17:53 | Emergency (ER) | payer OTHER ==
[~2020-02-16] VITALS: Ht 157.4 cm; Wt 98.4 kg
[~2020-02-16 17:53] MED LIST changes: +AMOXICILLIN500 M2 PO; +ROBITUSSIN DM 105 ML PO
[2020-02-16 18:29] VITALS: BP 136/79
[2020-02-16] MEDS ORDERED: TESSALON PERLE100 M1 PO (21:02)
[2020-02-16] MEDS ORDERED: PROVENTIL HFA6.7 GM INH (21:02)
[2020-02-16] MEDS ORDERED: PREDNISONE20 M1 PO (21:02)
== END 2020-02-16 21:15 | disposition home or self-care (01) ==
LOC: ED 17:53
DX: J40 Bronchitis, not specified as acute or chronic (principal); K21.9 Gastro-esophageal reflux disease without esophagitis; F32.9 Major depressive disorder, single episode, unspecified; F41.9 Anxiety disorder, unspecified; F17.200 Nicotine dependence, unspecified, uncomplicated; Z88.8 Allergy status to other drugs, medicaments and biological substances; Z79.2 Long term (current) use of antibiotics; Z79.899 Other long term (current) drug therapy

== ENCOUNTER 2020-02-20 19:23 | Emergency (ER) | payer OTHER ==
[~2020-02-20] VITALS: Ht 157.4 cm; Wt 95.3 kg
[~2020-02-20 19:23] MED LIST changes: +PREDNISONE20 M1 PO; +PROVENTIL HFA6.7 GM INH; +TESSALON PERLE100 M1 PO
[2020-02-20 19:51] VITALS: BP 128/77
== END 2020-02-20 21:09 | disposition home or self-care (01) ==
LOC: ED 19:23
DX: S63.501A Unspecified sprain of right wrist, initial encounter (principal); S69.91XA Unspecified injury of right wrist, hand and finger(s), initial encounter; Z88.8 Allergy status to other drugs, medicaments and biological substances; Z79.899 Other long term (current) drug therapy; W20.8XXA Other cause of strike by thrown, projected or falling object, initial encounter; Y93.89 Activity, other specified; Y92.89 Other specified places as the place of occurrence of the external cause; Y99.8 Other external cause status

== ENCOUNTER 2020-03-02 01:21 | Emergency (ER) | payer OTHER ==
[2020-03-02 01:27] VITALS: BP 131/79
== END 2020-03-02 02:01 | disposition home or self-care (01) ==
LOC: ED 01:21
DX: S60.051A Contusion of right little finger without damage to nail, initial encounter (principal); Z88.8 Allergy status to other drugs, medicaments and biological substances; Z79.899 Other long term (current) drug therapy; X58.XXXA Exposure to other specified factors, initial encounter; Y93.89 Activity, other specified; Y92.89 Other specified places as the place of occurrence of the external cause; Y99.8 Other external cause status

== ENCOUNTER 2020-03-03 21:48 | Emergency (ER) | payer OTHER ==
[2020-03-03 22:05] VITALS: BP 128/70
[2020-03-03 23:12] LABS: BILIRUBIN Negative (Negative); BLOOD Negative (Negative); CLARITY Clear (Clear); COLOR Yellow (Yellow); GLUCOSE Trace (Negative); KETONE Negative (Negative); LEUKO ESTERASE Negative (Negative); NITRITE Negative (Negative); SPECIFIC GRAVITY 1.025 (1.001-1.030); UROBILINOGEN 0.2 E.U./dl (0.0-1.0)
[2020-03-03 23:28] LABS: BACTERIA 1+; RBC 0-2 rbc/hpf (0-2); WBC 0-2 wbc/hpf (0-5)
== END 2020-03-03 23:59 | disposition home or self-care (01) ==
LOC: ED 21:48
PROVIDERS: Nurse Practitioner Family
DX: R60.0 Localized edema (principal); Z88.8 Allergy status to other drugs, medicaments and biological substances; Z79.899 Other long term (current) drug therapy

== ENCOUNTER 2020-03-14 02:26 | Emergency (ER) | payer OTHER ==
[~2020-03-14] VITALS: Ht 157.4 cm; Wt 95.3 kg
[2020-03-14 02:41] VITALS: BP 128/83
[2020-03-14] MEDS ORDERED: CIPRO500 MG PO ×2 (02:54→03:09)
[2020-03-14] MEDS ORDERED: Motrin,Rufen800 MG PO (03:09)
== END 2020-03-14 03:50 | disposition home or self-care (01) ==
LOC: ED 02:26
DX: S91.332A Puncture wound without foreign body, left foot, initial encounter (principal); F41.9 Anxiety disorder, unspecified; Z88.8 Allergy status to other drugs, medicaments and biological substances; Z79.899 Other long term (current) drug therapy; X58.XXXA Exposure to other specified factors, initial encounter; Y93.89 Activity, other specified; Y92.89 Other specified places as the place of occurrence of the external cause; Y99.8 Other external cause status

== ENCOUNTER 2020-03-16 01:26 | Emergency (ER) | payer OTHER ==
[~2020-03-16] VITALS: Ht 157.4 cm; Wt 95.3 kg
[~2020-03-16 01:26] MED LIST changes: +CIPRO500 MG PO
[2020-03-16 01:49] VITALS: BP 127/81
== END 2020-03-16 02:44 | disposition home or self-care (01) ==
LOC: ED 01:26
DX: S91.332A Puncture wound without foreign body, left foot, initial encounter (principal); Z88.8 Allergy status to other drugs, medicaments and biological substances; Z79.899 Other long term (current) drug therapy; W45.0XXA Nail entering through skin, initial encounter; Y93.89 Activity, other specified; Y92.89 Other specified places as the place of occurrence of the external cause; Y99.8 Other external cause status

== ENCOUNTER 2020-03-22 00:03 | Emergency (ER) | payer OTHER ==
[~2020-03-22] VITALS: Ht 157.4 cm; Wt 99.8 kg
[2020-03-22 00:24] VITALS: BP 122/68
[2020-03-22] MEDS ORDERED: NAPROSYN EC375 MG PO (01:48)
== END 2020-03-22 02:20 | disposition home or self-care (01) ==
LOC: ED 00:03
DX: M25.561 Pain in right knee (principal); M25.562 Pain in left knee; M79.605 Pain in left leg; M79.604 Pain in right leg; K21.9 Gastro-esophageal reflux disease without esophagitis; Z88.8 Allergy status to other drugs, medicaments and biological substances; Z79.899 Other long term (current) drug therapy

== ENCOUNTER 2020-04-02 04:50 | Emergency (ER) | payer OTHER ==
[~2020-04-02] VITALS: Ht 157.4 cm; Wt 95.3 kg
[2020-04-02 05:02] VITALS: BP 140/68
[2020-04-02] MEDS ORDERED: MUCINEX ER600 MG PO ×2 (07:49)
== END 2020-04-02 07:53 | disposition home or self-care (01) ==
LOC: ED 04:50
DX: J06.9 Acute upper respiratory infection, unspecified (principal); R05 Cough; F41.9 Anxiety disorder, unspecified; F32.9 Major depressive disorder, single episode, unspecified; K21.9 Gastro-esophageal reflux disease without esophagitis; Z88.8 Allergy status to other drugs, medicaments and biological substances; Z79.899 Other long term (current) drug therapy

== ENCOUNTER 2020-05-28 03:48 | Emergency (ER) | payer OTHER ==
[~2020-05-28] VITALS: Ht 157.4 cm; Wt 86.2 kg
[~2020-05-28 03:48] MED LIST changes: +MUCINEX ER600 MG PO
[2020-05-28 03:51] VITALS: BP 133/78
[2020-05-28] MEDS ORDERED: VISTARIL25 MG PO (03:52)
[2020-05-28] MEDS ORDERED: PROZAC10 MG PO (03:53)
[2020-05-28] MEDS ORDERED: PRILOSEC20 M1 PO (03:53)
[2020-05-28] MEDS ORDERED: PROVENTIL HFA6.7 GM INH (05:47)
[2020-05-28] MEDS ORDERED: PREDNISONE20 M1 PO (05:47)
[2020-05-28] MEDS ORDERED: AUGMENTIN 875875 MG PO (05:47)
== END 2020-05-28 06:07 | disposition home or self-care (01) ==
LOC: ED 03:48
DX: J20.9 Acute bronchitis, unspecified (principal); Z20.828 Contact with and (suspected) exposure to other viral communicable diseases; J32.9 Chronic sinusitis, unspecified; F17.200 Nicotine dependence, unspecified, uncomplicated; Z88.8 Allergy status to other drugs, medicaments and biological substances; Z79.899 Other long term (current) drug therapy

== ENCOUNTER 2020-07-11 17:34 | Emergency (ER) | payer OTHER ==
[~2020-07-11] VITALS: Ht 157.4 cm; Wt 86.2 kg
[~2020-07-11 17:34] MED LIST changes: +AUGMENTIN 875875 MG PO; +PRILOSEC20 M1 PO; +VISTARIL25 MG PO
[2020-07-11 17:41] VITALS: BP 137/67
[2020-07-11] MEDS ORDERED: CELEXA10 MG PO (17:51)
[2020-07-11] MEDS ORDERED: IBUPROFEN600 MG PO (19:29)
== END 2020-07-11 19:32 | disposition home or self-care (01) ==
LOC: ED 17:34
DX: S20.20XA Contusion of thorax, unspecified, initial encounter (principal); F41.9 Anxiety disorder, unspecified; F32.9 Major depressive disorder, single episode, unspecified; K21.9 Gastro-esophageal reflux disease without esophagitis; F17.200 Nicotine dependence, unspecified, uncomplicated; Z88.8 Allergy status to other drugs, medicaments and biological substances; Z79.899 Other long term (current) drug therapy; X58.XXXA Exposure to other specified factors, initial encounter; Y93.89 Activity, other specified; Y92.89 Other specified places as the place of occurrence of the external cause; Y99.8 Other external cause status

== ENCOUNTER 2020-07-14 18:11 | Emergency (ER) | payer OTHER ==
[~2020-07-14] VITALS: Ht 157.4 cm; Wt 89.8 kg
[~2020-07-14 18:11] MED LIST changes: +CELEXA10 MG PO; +IBUPROFEN600 MG PO
[2020-07-14 18:26] VITALS: BP 117/76
== END 2020-07-14 19:00 ==
LOC: ED 18:11
DX: T50.905A Adverse effect of unspecified drugs, medicaments and biological substances, initial encounter (principal); F41.9 Anxiety disorder, unspecified; F32.9 Major depressive disorder, single episode, unspecified; K21.9 Gastro-esophageal reflux disease without esophagitis; F17.200 Nicotine dependence, unspecified, uncomplicated; Z88.8 Allergy status to other drugs, medicaments and biological substances; Z79.899 Other long term (current) drug therapy; Y92.89 Other specified places as the place of occurrence of the external cause

== ENCOUNTER 2020-08-15 02:02 | Emergency (ER) | payer OTHER ==
[~2020-08-15] VITALS: Ht 157.4 cm; Wt 99.8 kg
[2020-08-15 02:08] VITALS: BP 132/84
[2020-08-15 03:28] LABS: BASO % 0.2 % (0.0-1.0); EOS % 6.7 % (1.0-4.0); LYMPH # 3.6 10*3/uL (1.3-4.4); LYMPH % 23.7 % (27.0-41.0); MEAN CELL VOLUME 83.2 fl (81.0-99.0); MEAN CORPUSCULAR HGB 26.4 pg (27.0-31.0); MEAN CORPUSCULAR HGB CONC 31.7 g/dl (33.0-37.0); MEAN PLATELET VOLUME 9.8 fl (9.6-12.3); MONO # 0.8 10*3/uL (0.1-1.0); MONO % 5.2 % (3.0-9.0); NEUT # 9.7 10*3/uL (2.3-7.9); NEUT % 63.7 % (47.0-73.0); PLATELET COUNT AUTOMATED 342 10*3/uL (130-400); RED BLOOD COUNT 4.93 10*6/uL (4.10-5.10); RED CELL DISTRI WIDTH 13.3 % (0-14.5); WHITE BLOOD COUNT 15.3 10*3/uL (4.8-10.8)
[2020-08-15 03:44] LABS: ALBUMIN 3.3 gm/dl (3.1-4.5); ALKALINE PHOSPHATASE 71 U/L (45-117); BUN 12 mg/dl (7-24); CHLORIDE 108 mmol/L (98-107); CREATININE 0.89 mg/dL (0.55-1.02); POTASSIUM 4.2 mmol/L (3.5-5.1); SGOT/AST 16 IU/L (3-35); SGPT/ALT 34 U/L (12-78); SODIUM 140 mmol/L (136-145); TOTAL PROTEIN 7.7 gm/dL (6.4-8.2)
[2020-08-15] MEDS ORDERED: CIPRO500 MG PO (03:53)
[2020-08-15] MEDS ORDERED: FLAGYL500 MG PO (03:53)
== END 2020-08-15 04:05 | disposition home or self-care (01) ==
LOC: ED 02:02
PROVIDERS: Internal Medicine
DX: K52.9 Noninfective gastroenteritis and colitis, unspecified (principal); F41.9 Anxiety disorder, unspecified; F32.9 Major depressive disorder, single episode, unspecified; K21.9 Gastro-esophageal reflux disease without esophagitis; Z88.8 Allergy status to other drugs, medicaments and biological substances; Z79.899 Other long term (current) drug therapy

== ENCOUNTER 2020-08-23 00:39 | Emergency (ER) | payer OTHER ==
[~2020-08-23] VITALS: Ht 157.4 cm; Wt 99.8 kg
[~2020-08-23 00:39] MED LIST changes: +FLAGYL500 MG PO
[2020-08-23 00:49] VITALS: BP 115/59
[2020-08-23] MEDS ORDERED: Kenalog 0.5% Cr15 GM T (16:02)
== END 2020-08-23 01:18 | disposition home or self-care (01) ==
LOC: ED 00:39
DX: L30.9 Dermatitis, unspecified (principal); Z88.8 Allergy status to other drugs, medicaments and biological substances; Z79.899 Other long term (current) drug therapy; Z79.2 Long term (current) use of antibiotics

== ENCOUNTER 2020-08-23 14:14 | Emergency (ER) | payer OTHER ==
[~2020-08-23] VITALS: Ht 157.4 cm; Wt 99.8 kg
[2020-08-23 14:19] VITALS: BP 142/78
[2020-08-23] MEDS ORDERED: Kenalog 0.5% Cr15 GM T (16:02)
== END 2020-08-23 16:05 | disposition home or self-care (01) ==
LOC: ED 14:14
DX: R00.2 Palpitations (principal); T38.0X5A Adverse effect of glucocorticoids and synthetic analogues, initial encounter; R21 Rash and other nonspecific skin eruption; Z88.8 Allergy status to other drugs, medicaments and biological substances; Z79.899 Other long term (current) drug therapy; Z79.2 Long term (current) use of antibiotics; Y92.89 Other specified places as the place of occurrence of the external cause

== ENCOUNTER 2020-09-03 11:03 | Emergency (ER) | payer OTHER ==
[~2020-09-03] VITALS: Ht 157.4 cm; Wt 95.3 kg
[~2020-09-03 11:03] MED LIST changes: +Kenalog 0.5% Cr15 GM T
[2020-09-03 11:12] VITALS: BP 124/59
[2020-09-03] MEDS ORDERED: IBU400 M1 PO (12:55)
== END 2020-09-03 13:09 | disposition home or self-care (01) ==
LOC: ED 11:03
DX: S60.221A Contusion of right hand, initial encounter (principal); F41.9 Anxiety disorder, unspecified; F32.9 Major depressive disorder, single episode, unspecified; K21.9 Gastro-esophageal reflux disease without esophagitis; Z88.8 Allergy status to other drugs, medicaments and biological substances; Z79.899 Other long term (current) drug therapy; Z98.890 Other specified postprocedural states; X58.XXXA Exposure to other specified factors, initial encounter; Y93.89 Activity, other specified; Y92.89 Other specified places as the place of occurrence of the external cause; Y99.8 Other external cause status

== ENCOUNTER 2020-09-23 01:50 | Emergency (ER) | payer OTHER ==
[~2020-09-23 01:50] MED LIST changes: +IBU400 M1 PO
[2020-09-23 02:02] VITALS: BP 151/79
[2020-09-23] MEDS ORDERED: NAPROSYN500 MG PO (02:21)
== END 2020-09-23 02:39 | disposition home or self-care (01) ==
LOC: ED 01:50
DX: S80.01XA Contusion of right knee, initial encounter (principal); Z79.899 Other long term (current) drug therapy; Z98.890 Other specified postprocedural states; V89.2XXA Person injured in unspecified motor-vehicle accident, traffic, initial encounter; Y93.89 Activity, other specified; Y92.89 Other specified places as the place of occurrence of the external cause; Y99.8 Other external cause status

== ENCOUNTER 2020-10-02 15:06 | Emergency (ER) | payer OTHER ==
[~2020-10-02] VITALS: Ht 157.4 cm; Wt 102.1 kg
[2020-10-02 15:32] VITALS: BP 122/84
[2020-10-02] MEDS ORDERED: KENALOG 0.025%15 GM T (16:45)
== END 2020-10-02 17:02 | disposition home or self-care (01) ==
LOC: ED 15:06
DX: T88.1XXA Other complications following immunization, not elsewhere classified, initial encounter (principal); Z88.8 Allergy status to other drugs, medicaments and biological substances; Z98.890 Other specified postprocedural states; Z79.899 Other long term (current) drug therapy; Y92.89 Other specified places as the place of occurrence of the external cause

== ENCOUNTER 2020-10-04 23:25 | Emergency (ER) | payer OTHER ==
[~2020-10-04 23:25] MED LIST changes: +KENALOG 0.025%15 GM T
[2020-10-05 00:04] VITALS: BP 117/78
== END 2020-10-05 01:22 | disposition left against medical advice (07) ==
LOC: ED 23:25
DX: S89.90XA Unspecified injury of unspecified lower leg, initial encounter (principal); Z53.21 Procedure and treatment not carried out due to patient leaving prior to being seen by health care provider; X58.XXXA Exposure to other specified factors, initial encounter; Y93.89 Activity, other specified; Y92.89 Other specified places as the place of occurrence of the external cause; Y99.8 Other external cause status

== ENCOUNTER 2020-10-18 00:20 | Emergency (ER) | payer OTHER ==
[~2020-10-18] VITALS: Ht 157.4 cm; Wt 99.8 kg
[2020-10-18] MEDS ORDERED: NAPROXEN250 MG PO ×2 (01:27)
== END 2020-10-18 01:55 | disposition home or self-care (01) ==
LOC: ED 00:20
DX: S60.212A Contusion of left wrist, initial encounter (principal); Z79.899 Other long term (current) drug therapy; Z88.8 Allergy status to other drugs, medicaments and biological substances; W22.01XA Walked into wall, initial encounter; Y93.89 Activity, other specified; Y92.89 Other specified places as the place of occurrence of the external cause; Y99.9 Unspecified external cause status

== ENCOUNTER 2020-10-24 19:26 | Emergency (ER) | payer OTHER ==
[~2020-10-24] VITALS: Ht 157.4 cm; Wt 97.5 kg
[~2020-10-24 19:26] MED LIST changes: +NAPROXEN250 MG PO
[2020-10-24 19:29] VITALS: BP 136/78
== END 2020-10-24 21:15 | disposition home or self-care (01) ==
LOC: ED 19:26
DX: R00.2 Palpitations (principal); F15.90 Other stimulant use, unspecified, uncomplicated; R07.89 Other chest pain; Z88.8 Allergy status to other drugs, medicaments and biological substances; Z79.899 Other long term (current) drug therapy

== ENCOUNTER 2020-11-14 17:51 | Emergency (ER) | payer OTHER ==
[2020-11-14 18:44] VITALS: BP 112/57
[2020-11-14] MEDS ORDERED: AMOXICILLIN500 M2 PO (19:23)
== END 2020-11-14 19:45 | disposition home or self-care (01) ==
LOC: ED 17:51
DX: J02.9 Acute pharyngitis, unspecified (principal); Z88.8 Allergy status to other drugs, medicaments and biological substances; Z79.899 Other long term (current) drug therapy

== ENCOUNTER 2020-12-12 22:12 | Emergency (ER) | payer OTHER ==
[2020-12-12 22:33] VITALS: BP 132/81
== END 2020-12-12 23:26 | disposition home or self-care (01) ==
LOC: ED 22:12
DX: F41.9 Anxiety disorder, unspecified (principal); R11.2 Nausea with vomiting, unspecified; Z88.8 Allergy status to other drugs, medicaments and biological substances; Z79.899 Other long term (current) drug therapy; Z79.2 Long term (current) use of antibiotics

== ENCOUNTER 2020-12-13 06:48 | Emergency (ER) | payer OTHER ==
[~2020-12-13] VITALS: Ht 157.4 cm; Wt 87.1 kg
[2020-12-13 06:50] VITALS: BP 110/66
[2020-12-13 07:28] LABS: BASO % 0.2 % (0.0-1.0); EOS # 0.5 10*3/uL (0.0-0.4); EOS % 4.5 % (1.0-4.0); HEMATOCRIT 40.1 % (37.0-47.0); LYMPH % 24.9 % (27.0-41.0); MEAN CELL VOLUME 84.8 fl (81.0-99.0); MEAN CORPUSCULAR HGB 26.4 pg (27.0-31.0); MEAN CORPUSCULAR HGB CONC 31.2 g/dl (33.0-37.0); MEAN PLATELET VOLUME 10.2 fl (9.6-12.3); MONO # 0.7 10*3/uL (0.1-1.0); MONO % 6.1 % (3.0-9.0); NEUT # 7.7 10*3/uL (2.3-7.9); NEUT % 64.1 % (47.0-73.0); PLATELET COUNT AUTOMATED 289 10*3/uL (130-400); RED BLOOD COUNT 4.73 10*6/uL (4.10-5.10); RED CELL DISTRI WIDTH 13.2 % (0-14.5)
[2020-12-13 07:41] LABS: ALBUMIN 3.6 gm/dl (3.1-4.5); ALKALINE PHOSPHATASE 60 U/L (45-117); BUN 11 mg/dl (7-24); CHLORIDE 110 mmol/L (98-107); CREATININE 0.66 mg/dL (0.55-1.02); POTASSIUM 3.8 mmol/L (3.5-5.1); SGOT/AST 18 IU/L (3-35); SGPT/ALT 28 U/L (12-78); SODIUM 140 mmol/L (136-145); TOTAL PROTEIN 7.4 gm/dL (6.4-8.2)
[2020-12-13 07:42] LABS: ACETAMINOPHEN (TYLENOL) < 5.0 ug/ml (10-30); ETHYL ALCOHOL < 3.0 mg/dl (<3)
[2020-12-13 09:06] LABS: BILIRUBIN Negative (Negative); BLOOD Negative (Negative); CLARITY Cloudy (Clear); COLOR Dark Yellow (Yellow); GLUCOSE Negative (Negative); KETONE 2+ (Negative); LEUKO ESTERASE Negative (Negative); NITRITE Negative (Negative); SPECIFIC GRAVITY >= 1.030 (1.001-1.030)
[2020-12-13 09:15] LABS: BACTERIA TRACE; MUCOUS 2+
[2020-12-13 09:22] LABS: URINE AMPHETAMINES < 1000 (1000ng/ml); URINE BARBITURATES < 200 (200ng/ml); URINE BENZODIAZEPINES < 200 (200ng/ml); URINE CANNABINOIDS (THC) < 50 (50ng/ml); URINE COCAINE < 300 (300ng/ml); URINE METHADONE < 300 (300ng/ml); URINE OPIATES < 300 (300ng/ml)
[2020-12-13 09:28] LABS: URINE PHENCYCLIDINE < 25 (25ng/ml)
== END 2020-12-13 09:58 | disposition home or self-care (01) ==
LOC: ED 06:48
PROVIDERS: Student in an Organized Health Care Education/Training Program
DX: F43.21 Adjustment disorder with depressed mood (principal); F17.200 Nicotine dependence, unspecified, uncomplicated; Z88.8 Allergy status to other drugs, medicaments and biological substances; Z79.899 Other long term (current) drug therapy; Z79.2 Long term (current) use of antibiotics

== ENCOUNTER 2020-12-17 23:11 | Emergency (ER) | payer OTHER ==
[2020-12-17 23:22] VITALS: BP 143/90
== END 2020-12-18 02:03 | disposition home or self-care (01) ==
LOC: ED 23:11
DX: S83.8X1A Sprain of other specified parts of right knee, initial encounter (principal); Z79.899 Other long term (current) drug therapy; Z88.8 Allergy status to other drugs, medicaments and biological substances; X50.1XXA Overexertion from prolonged static or awkward postures, initial encounter; Y93.89 Activity, other specified; Y92.89 Other specified places as the place of occurrence of the external cause; Y99.9 Unspecified external cause status

== ENCOUNTER 2021-01-01 17:32 | Emergency (ER) | payer OTHER | END 2021-01-01 17:57 | disposition left against medical advice (07) | LOC: ED 17:32 | DX: M25.562 Pain in left knee (principal); Z53.21 Procedure and treatment not carried out due to patient leaving prior to being seen by health care provider; X58.XXXA Exposure to other specified factors, initial encounter; Y93.89 Activity, other specified; Y92.89 Other specified places as the place of occurrence of the external cause; Y99.8 Other external cause status ==

== ENCOUNTER → 2021-01-09 | Outpatient (CLI) | payer OTHER ==
[2021-01-09 12:27] LABS: HEMATOCRIT 41.4 % (37.0-47.0); MEAN CELL VOLUME 83.8 fl (81.0-99.0); MEAN CORPUSCULAR HGB 26.7 pg (27.0-31.0); MEAN CORPUSCULAR HGB CONC 31.9 g/dl (33.0-37.0); MEAN PLATELET VOLUME 10.4 fl (9.6-12.3); RED BLOOD COUNT 4.94 10*6/uL (4.10-5.10); RED CELL DISTRI WIDTH 13.5 % (0-14.5); WHITE BLOOD COUNT 10.7 10*3/uL (4.8-10.8)
[2021-01-09 13:02] LABS: ALBUMIN 3.5 gm/dl (3.1-4.5); ALKALINE PHOSPHATASE 63 U/L (45-117); BUN 13 mg/dl (7-24); CHLORIDE 109 mmol/L (98-107); CHOLESTEROL 167 mg/dL (<200); CREATININE 0.69 mg/dL (0.55-1.02); LDL CHOLESTEROL 77 mg/dL (9-159); POTASSIUM 3.8 mmol/L (3.5-5.1); SGOT/AST 14 IU/L (3-35); SGPT/ALT 26 U/L (12-78); SODIUM 139 mmol/L (136-145); TOTAL PROTEIN 7.5 gm/dL (6.4-8.2); TRIGLYCERIDES 322 mg/dl (<150)
[2021-01-09 13:42] LABS: VITAMIN D, 25-HYDROXY 20.1 ng/mL (30-100)
[2021-01-10 08:07] LABS: RHEUMATOID ARTHRITIS FACTOR <10.0 IU/mL (0.0-13.9)
== END | disposition home or self-care (01) ==
LOC: LAB 11:35
PROVIDERS: ATTEND Family Medicine
DX: E55.9 Vitamin D deficiency, unspecified (principal); F41.9 Anxiety disorder, unspecified; F32.9 Major depressive disorder, single episode, unspecified; M25.561 Pain in right knee; F39 Unspecified mood [affective] disorder; M79.10 Myalgia, unspecified site; Z79.899 Other long term (current) drug therapy

== ENCOUNTER 2021-01-23 19:52 | Emergency (ER) | payer OTHER ==
[~2021-01-23] VITALS: Ht 157.4 cm; Wt 93.0 kg
[2021-01-23 19:53] VITALS: BP 123/941
[2021-01-23] MEDS ORDERED: NAPROXEN250 MG PO (20:42)
== END 2021-01-23 20:55 | disposition home or self-care (01) ==
LOC: ED 19:52
DX: M25.561 Pain in right knee (principal); Z79.899 Other long term (current) drug therapy; Z88.8 Allergy status to other drugs, medicaments and biological substances; X58.XXXA Exposure to other specified factors, initial encounter; Y93.01 Activity, walking, marching and hiking; Y92.89 Other specified places as the place of occurrence of the external cause; Y99.8 Other external cause status

== ENCOUNTER 2021-02-05 18:03 | Emergency (ER) | payer OTHER ==
[~2021-02-05] VITALS: Ht 157.4 cm; Wt 81.6 kg
[2021-02-05 18:20] VITALS: BP 135/90
[2021-02-05 19:39] LABS: BILIRUBIN Negative (Negative); BLOOD 1+ (Negative); CLARITY Turbid (Clear); COLOR Yellow (Yellow); GLUCOSE Negative (Negative); KETONE Negative (Negative); LEUKO ESTERASE 3+ (Negative); NITRITE Negative (Negative); PH 5.5 (4.5-8.0); SPECIFIC GRAVITY 1.025 (1.001-1.030)
[2021-02-05] MEDS ORDERED: SEPTDS PO (19:51)
[2021-02-05] MEDS ORDERED: PYRIDIUM200 M1 PO (19:51)
[2021-02-05 19:56] LABS: BACTERIA 4+; WBC TNTC wbc/hpf (0-5)
== END 2021-02-05 20:12 | disposition home or self-care (01) ==
LOC: ED 18:03
PROVIDERS: Physician Assistant
DX: N39.0 Urinary tract infection, site not specified (principal); Z88.8 Allergy status to other drugs, medicaments and biological substances; Z79.899 Other long term (current) drug therapy

== ENCOUNTER 2021-04-13 14:48 | Emergency (ER) | payer OTHER ==
[~2021-04-13 14:48] MED LIST changes: +PYRIDIUM200 M1 PO
[2021-04-13 15:07] VITALS: BP 123/91
== END 2021-04-13 17:53 | disposition home or self-care (01) ==
LOC: ED 14:48
DX: S86.911A Strain of unspecified muscle(s) and tendon(s) at lower leg level, right leg, initial encounter (principal); Z88.8 Allergy status to other drugs, medicaments and biological substances; Z79.899 Other long term (current) drug therapy; Z79.2 Long term (current) use of antibiotics; W22.8XXA Striking against or struck by other objects, initial encounter; Y93.89 Activity, other specified; Y92.89 Other specified places as the place of occurrence of the external cause; Y99.8 Other external cause status

== ENCOUNTER 2021-07-24 17:38 | Emergency (ER) | payer OTHER ==
[~2021-07-24] VITALS: Ht 157.4 cm; Wt 81.6 kg
[2021-07-24 18:19] VITALS: BP 134/81
== END 2021-07-24 20:38 | disposition home or self-care (01) ==
LOC: ED 17:38
DX: S93.402A Sprain of unspecified ligament of left ankle, initial encounter (principal); Z88.8 Allergy status to other drugs, medicaments and biological substances; Z79.899 Other long term (current) drug therapy; X58.XXXA Exposure to other specified factors, initial encounter; Y93.89 Activity, other specified; Y92.89 Other specified places as the place of occurrence of the external cause; Y99.8 Other external cause status

== ENCOUNTER 2021-08-01 16:01 | Emergency (ER) | payer OTHER ==
[~2021-08-01] VITALS: Ht 157.4 cm; Wt 81.6 kg
[2021-08-01 16:08] VITALS: BP 127/77
[2021-08-01 16:53] LABS: BILIRUBIN Negative (Negative); BLOOD Negative (Negative); CLARITY Clear (Clear); COLOR Yellow (Yellow); GLUCOSE Negative (Negative); KETONE Trace (Negative); LEUKO ESTERASE Negative (Negative); NITRITE Negative (Negative)
[2021-08-01 17:04] LABS: BASO % 0.2 % (0.0-1.0); EOS # 0.8 10*3/uL (0.0-0.4); EOS % 6.7 % (1.0-4.0); HEMATOCRIT 40.3 % (37.0-47.0); LYMPH % 23.8 % (27.0-41.0); MEAN CELL VOLUME 85.4 fl (81.0-99.0); MEAN CORPUSCULAR HGB 27.1 pg (27.0-31.0); MEAN CORPUSCULAR HGB CONC 31.8 g/dl (33.0-37.0); MEAN PLATELET VOLUME 10.1 fl (9.6-12.3); MONO # 0.6 10*3/uL (0.1-1.0); NEUT # 7.9 10*3/uL (2.3-7.9); PLATELET COUNT AUTOMATED 280 10*3/uL (130-400); RED BLOOD COUNT 4.72 10*6/uL (4.10-5.10); RED CELL DISTRI WIDTH 13.3 % (0-14.5); WHITE BLOOD COUNT 12.4 10*3/uL (4.8-10.8)
[2021-08-01 17:06] LABS: BACTERIA 2+; MUCOUS 2+
[2021-08-01 17:23] LABS: ALKALINE PHOSPHATASE 62 U/L (45-117); BUN 15 mg/dl (7-24); CHLORIDE 107 mmol/L (98-107); CREATININE 0.81 mg/dL (0.55-1.02); LIPASE 229 U/L (73-393); POTASSIUM 4.1 mmol/L (3.5-5.1); SGOT/AST 17 IU/L (3-35); SGPT/ALT 31 U/L (12-78); SODIUM 141 mmol/L (136-145); TOTAL PROTEIN 6.9 gm/dL (6.4-8.2)
== END 2021-08-01 18:17 | disposition home or self-care (01) ==
LOC: ED 16:01
PROVIDERS: Physician Assistant
DX: R11.10 Vomiting, unspecified (principal); Z88.8 Allergy status to other drugs, medicaments and biological substances; Z79.899 Other long term (current) drug therapy

== ENCOUNTER → 2021-08-27 | Outpatient (CLI) | payer OTHER ==
[2021-08-27 12:20] LABS: HEMATOCRIT 41.6 % (37.0-47.0); MEAN CELL VOLUME 83.7 fl (81.0-99.0); MEAN CORPUSCULAR HGB CONC 32.2 g/dl (33.0-37.0); MEAN PLATELET VOLUME 10.7 fl (9.6-12.3); RED BLOOD COUNT 4.97 10*6/uL (4.10-5.10); RED CELL DISTRI WIDTH 13.2 % (0-14.5); WHITE BLOOD COUNT 12.2 10*3/uL (4.8-10.8)
[2021-08-27 12:40] LABS: ALKALINE PHOSPHATASE 63 U/L (45-117); BUN 14 mg/dl (7-24); CHLORIDE 107 mmol/L (98-107); CHOLESTEROL 170 mg/dL (<200); POTASSIUM 3.9 mmol/L (3.5-5.1); SGOT/AST 12 IU/L (3-35); SGPT/ALT 27 U/L (12-78); SODIUM 137 mmol/L (136-145); TOTAL PROTEIN 7.2 gm/dL (6.4-8.2); TRIGLYCERIDES 562 mg/dl (<150)
== END | disposition home or self-care (01) ==
LOC: LAB 12:02
PROVIDERS: ATTEND Family Medicine
DX: Z00.00 Encounter for general adult medical examination without abnormal findings (principal); K21.9 Gastro-esophageal reflux disease without esophagitis

== ENCOUNTER → 2021-09-20 | Outpatient (CLI) | payer OTHER | END | disposition home or self-care (01) | LOC: LAB 10:47 | PROVIDERS: ATTEND Family Medicine | DX: E74.9 Disorder of carbohydrate metabolism, unspecified (principal) ==

== ENCOUNTER 2021-10-03 18:25 | Emergency (ER) | payer OTHER ==
[~2021-10-03] VITALS: Wt 95.3 kg
[2021-10-03 18:26] VITALS: BP 140/96
== END 2021-10-03 21:47 | disposition home or self-care (01) ==
LOC: ED 18:25
DX: R51.9 Headache, unspecified (principal); K21.9 Gastro-esophageal reflux disease without esophagitis; Z88.8 Allergy status to other drugs, medicaments and biological substances; Z79.899 Other long term (current) drug therapy

== ENCOUNTER 2021-10-17 17:46 | Emergency (ER) | payer OTHER ==
[~2021-10-17] VITALS: Ht 154.9 cm; Wt 89.8 kg
[2021-10-17 17:53] VITALS: BP 140/92
[2021-10-17] MEDS ORDERED: METFORMIN HYDR500 MG PO (18:10)
[2021-10-17] MEDS ORDERED: MELOXICAM15 MG PO (18:12)
== END 2021-10-17 19:17 | disposition home or self-care (01) ==
LOC: ED 17:46
DX: E11.65 Type 2 diabetes mellitus with hyperglycemia (principal)

== ENCOUNTER 2021-12-31 16:24 | Emergency (ER) | payer OTHER ==
[~2021-12-31] VITALS: Wt 95.3 kg
[~2021-12-31 16:24] MED LIST changes: +MELOXICAM15 MG PO; +METFORMIN HYDR500 MG PO
[2021-12-31 16:35] VITALS: BP 120/84
== END 2021-12-31 18:15 | disposition home or self-care (01) ==
LOC: ED 16:24
DX: R51.9 Headache, unspecified (principal); Z79.899 Other long term (current) drug therapy; Z88.8 Allergy status to other drugs, medicaments and biological substances

== ENCOUNTER 2022-02-04 19:13 | Emergency (ER) | payer OTHER ==
[2022-02-05] MEDS ORDERED: LISINOPRIL2.5 MG PO (04:08)
[2022-02-05] MEDS ORDERED: 'CLONIDINE0.1 MG PO (04:08)
== END 2022-02-04 19:40 | disposition left against medical advice (07) ==
LOC: ED 19:13
DX: Z53.21 Procedure and treatment not carried out due to patient leaving prior to being seen by health care provider (principal)

== ENCOUNTER 2022-02-05 02:23 | Emergency (ER) | payer OTHER ==
[~2022-02-05] VITALS: Wt 95.3 kg
[2022-02-05 03:04] VITALS: BP 138/89
[2022-02-05] MEDS ORDERED: 'CLONIDINE0.1 MG PO (04:08)
[2022-02-05] MEDS ORDERED: LISINOPRIL2.5 MG PO (04:08)
== END 2022-02-05 06:45 | disposition home or self-care (01) ==
LOC: ED 02:23
DX: M79.644 Pain in right finger(s) (principal); Z88.8 Allergy status to other drugs, medicaments and biological substances; Z79.899 Other long term (current) drug therapy; F17.200 Nicotine dependence, unspecified, uncomplicated

== ENCOUNTER 2022-04-16 23:38 | Emergency (ER) | payer OTHER ==
[~2022-04-16] VITALS: Ht 157.4 cm; Wt 93.0 kg
[~2022-04-16 23:38] MED LIST changes: +'CLONIDINE0.1 MG PO; +LISINOPRIL2.5 MG PO
[2022-04-17] MEDS ORDERED: NAPROXEN250 MG PO (01:28)
[2022-04-17 01:37] VITALS: BP 138/68
== END 2022-04-17 02:00 | disposition home or self-care (01) ==
LOC: ED 23:38
DX: R07.89 Other chest pain (principal); Z88.8 Allergy status to other drugs, medicaments and biological substances; Z79.899 Other long term (current) drug therapy

== ENCOUNTER → 2022-05-12 | Outpatient (CLI) | payer OTHER ==
[2022-05-12 14:36] LABS: BASO % 0.2 % (0.0-1.0); EOS # 1.2 10*3/uL (0.0-0.4); EOS % 9.6 % (1.0-4.0); HEMATOCRIT 40.7 % (37.0-47.0); LYMPH # 3.3 10*3/uL (1.3-4.4); LYMPH % 26.6 % (27.0-41.0); MEAN CELL VOLUME 83.2 fl (81.0-99.0); MEAN CORPUSCULAR HGB 26.2 pg (27.0-31.0); MEAN CORPUSCULAR HGB CONC 31.4 g/dl (33.0-37.0); MEAN PLATELET VOLUME 9.8 fl (9.6-12.3); MONO # 0.7 10*3/uL (0.1-1.0); MONO % 5.7 % (3.0-9.0); NEUT # 7.1 10*3/uL (2.3-7.9); NEUT % 57.5 % (47.0-73.0); PLATELET COUNT AUTOMATED 374 10*3/uL (130-400); RED BLOOD COUNT 4.89 10*6/uL (4.10-5.10); RED CELL DISTRI WIDTH 13.9 % (0-14.5); WHITE BLOOD COUNT 12.3 10*3/uL (4.8-10.8)
[2022-05-12 14:49] LABS: ALKALINE PHOSPHATASE 51 U/L (46-116); BUN 9 mg/dl (9-23); CHLORIDE 105 mmol/L (98-107); CREATININE 0.54 mg/dL (0.55-1.02); POTASSIUM 3.9 mmol/L (3.4-5.1); SGPT/ALT 23 U/L (10-49); SODIUM 138 mmol/L (136-145); TOTAL PROTEIN 6.8 gm/dL (6.0-8.0)
== END | disposition home or self-care (01) ==
LOC: LAB 14:12
PROVIDERS: ATTEND Family Medicine
DX: R60.0 Localized edema (principal)

== ENCOUNTER 2022-06-02 19:35 | Emergency (ER) | payer OTHER ==
[~2022-06-02] VITALS: Ht 162.5 cm; Wt 90.7 kg
[2022-06-02] MEDS ORDERED: FAMOTIDINE40 MG PO (19:38)
[2022-06-02] MEDS ORDERED: VRAYLAR3 MG PO (19:39)
[2022-06-02 20:08] LABS: BASO % 0.2 % (0.0-1.0); EOS # 1.1 10*3/uL (0.0-0.4); HEMATOCRIT 37.7 % (37.0-47.0); LYMPH # 3.1 10*3/uL (1.3-4.4); LYMPH % 22.9 % (27.0-41.0); MEAN CELL VOLUME 81.6 fl (81.0-99.0); MEAN CORPUSCULAR HGB 25.8 pg (27.0-31.0); MEAN CORPUSCULAR HGB CONC 31.6 g/dl (33.0-37.0); MEAN PLATELET VOLUME 9.7 fl (9.6-12.3); MONO # 0.8 10*3/uL (0.1-1.0); NEUT # 8.4 10*3/uL (2.3-7.9); NEUT % 62.8 % (47.0-73.0); PLATELET COUNT AUTOMATED 324 10*3/uL (130-400); RED BLOOD COUNT 4.62 10*6/uL (4.10-5.10); RED CELL DISTRI WIDTH 13.7 % (0-14.5); WHITE BLOOD COUNT 13.4 10*3/uL (4.8-10.8)
[2022-06-02 20:22] LABS: ACT PARTIAL THROMBO TIME 25.8 SECONDS (20.0-32.1); INTERNATIONAL NORM RATIO 0.9 (2.0-3.5)
[2022-06-02 20:38] LABS: ALKALINE PHOSPHATASE 56 U/L (46-116); BUN 9 mg/dl (9-23); CHLORIDE 104 mmol/L (98-107); POTASSIUM 3.6 mmol/L (3.4-5.1); SGPT/ALT 22 U/L (10-49); TOTAL PROTEIN 6.9 gm/dL (6.0-8.0)
[2022-06-02 22:40] VITALS: BP 126/76
== END 2022-06-03 00:55 | disposition home or self-care (01) ==
LOC: ED 19:35
PROVIDERS: Emergency Medicine
DX: R07.89 Other chest pain (principal); R06.02 Shortness of breath; Z88.8 Allergy status to other drugs, medicaments and biological substances; Z79.899 Other long term (current) drug therapy

== ENCOUNTER 2022-06-07 16:55 | Emergency (ER) | payer OTHER ==
[~2022-06-07] VITALS: Wt 90.7 kg
[~2022-06-07 16:55] MED LIST changes: +FAMOTIDINE40 MG PO; +VRAYLAR3 MG PO
[2022-06-07 16:59] VITALS: BP 138/84
== END 2022-06-07 18:30 | disposition home or self-care (01) ==
LOC: ED 16:55
DX: S80.11XA Contusion of right lower leg, initial encounter (principal); Z88.8 Allergy status to other drugs, medicaments and biological substances; Z98.890 Other specified postprocedural states; W22.8XXA Striking against or struck by other objects, initial encounter; Y93.89 Activity, other specified; Y92.89 Other specified places as the place of occurrence of the external cause; Y99.8 Other external cause status

== ENCOUNTER 2022-06-28 21:25 | Emergency (ER) | payer OTHER ==
[~2022-06-28] VITALS: Ht 157.4 cm; Wt 90.7 kg
[2022-06-28 23:13] VITALS: BP 113/84
== END 2022-06-28 23:22 | disposition home or self-care (01) ==
LOC: ED 21:25
DX: F41.9 Anxiety disorder, unspecified (principal); Z98.890 Other specified postprocedural states; Z88.8 Allergy status to other drugs, medicaments and biological substances

== ENCOUNTER 2022-07-08 12:38 | Emergency (ER) | payer OTHER ==
[~2022-07-08] VITALS: Ht 154.9 cm; Wt 99.8 kg
[2022-07-08 13:06] VITALS: BP 127/50
[2022-07-08 13:53] LABS: BASO % 0.1 % (0.0-1.0); EOS # 0.7 10*3/uL (0.0-0.4); EOS % 4.8 % (1.0-4.0); HEMATOCRIT 44.1 % (37.0-47.0); LYMPH # 1.2 10*3/uL (1.3-4.4); LYMPH % 8.6 % (27.0-41.0); MEAN CELL VOLUME 83.1 fl (81.0-99.0); MEAN CORPUSCULAR HGB 25.2 pg (27.0-31.0); MEAN CORPUSCULAR HGB CONC 30.4 g/dl (33.0-37.0); MEAN PLATELET VOLUME 9.6 fl (9.6-12.3); MONO # 0.5 10*3/uL (0.1-1.0); MONO % 3.7 % (3.0-9.0); NEUT # 11.6 10*3/uL (2.3-7.9); NEUT % 82.5 % (47.0-73.0); PLATELET COUNT AUTOMATED 334 10*3/uL (130-400); RED BLOOD COUNT 5.31 10*6/uL (4.10-5.10); RED CELL DISTRI WIDTH 13.5 % (0-14.5)
[2022-07-08 14:10] LABS: ALKALINE PHOSPHATASE 53 U/L (46-116); BETA-HCG, QUANT < 3.0 mIU/mL (0-10); BUN 10 mg/dl (9-23); CHLORIDE 104 mmol/L (98-107); LIPASE 45 U/L (12-53); POTASSIUM 4.3 mmol/L (3.4-5.1); SGPT/ALT 27 U/L (10-49); TOTAL PROTEIN 7.3 gm/dL (6.0-8.0)
[2022-07-08] MEDS ORDERED: ONDANSETRON4 MG SL (14:42)
== END 2022-07-08 14:51 | disposition home or self-care (01) ==
LOC: ED 12:38
PROVIDERS: Emergency Medicine
DX: R11.2 Nausea with vomiting, unspecified (principal); R10.84 Generalized abdominal pain; Z88.8 Allergy status to other drugs, medicaments and biological substances; Z98.890 Other specified postprocedural states; Z79.899 Other long term (current) drug therapy

== ENCOUNTER 2022-07-19 20:13 | Emergency (ER) | payer OTHER ==
[~2022-07-19] VITALS: Wt 95.3 kg
[~2022-07-19 20:13] MED LIST changes: +ONDANSETRON4 MG SL
[2022-07-19 20:22] VITALS: BP 130/80
== END 2022-07-19 22:07 | disposition home or self-care (01) ==
LOC: ED 20:13
DX: S93.401A Sprain of unspecified ligament of right ankle, initial encounter (principal); F41.9 Anxiety disorder, unspecified; F32.A Depression, unspecified; K21.9 Gastro-esophageal reflux disease without esophagitis; Z88.8 Allergy status to other drugs, medicaments and biological substances; Z88.9 Allergy status to unspecified drugs, medicaments and biological substances; Z96.653 Presence of artificial knee joint, bilateral; Z98.890 Other specified postprocedural states; X50.1XXA Overexertion from prolonged static or awkward postures, initial encounter; Y93.89 Activity, other specified; Y92.89 Other specified places as the place of occurrence of the external cause; Y99.8 Other external cause status

== ENCOUNTER 2022-07-26 03:08 | Emergency (ER) | payer OTHER ==
[~2022-07-26] VITALS: Ht 152.4 cm; Wt 105.2 kg
[2022-07-26 03:14] VITALS: BP 124/82
[2022-07-26 03:31] LABS: BASO % 0.1 % (0.0-1.0); HEMATOCRIT 44.2 % (37.0-47.0); LYMPH # 1.8 10*3/uL (1.3-4.4); LYMPH % 12.7 % (27.0-41.0); MEAN CELL VOLUME 80.7 fl (81.0-99.0); MEAN CORPUSCULAR HGB 24.8 pg (27.0-31.0); MEAN CORPUSCULAR HGB CONC 30.8 g/dl (33.0-37.0); MEAN PLATELET VOLUME 9.6 fl (9.6-12.3); MONO # 0.2 10*3/uL (0.1-1.0); MONO % 1.2 % (3.0-9.0); NEUT # 12.1 10*3/uL (2.3-7.9); NEUT % 85.2 % (47.0-73.0); PLATELET COUNT AUTOMATED 431 10*3/uL (130-400); RED BLOOD COUNT 5.48 10*6/uL (4.10-5.10); RED CELL DISTRI WIDTH 13.5 % (0-14.5); WHITE BLOOD COUNT 14.2 10*3/uL (4.8-10.8)
[2022-07-26 03:50] LABS: ALKALINE PHOSPHATASE 64 U/L (46-116); BUN 9 mg/dl (9-23); CHLORIDE 101 mmol/L (98-107); POTASSIUM 3.7 mmol/L (3.4-5.1); SGPT/ALT 29 U/L (10-49); THYROID STIM HORMONE (HS) 1.187 uIU/ml (0.550-4.780); TOTAL PROTEIN 7.9 gm/dL (6.0-8.0)
[2022-07-27] MEDS ORDERED: AMOX-CLAV 875-1 EACH PO (00:06)
[2022-07-27] MEDS ORDERED: Meclizine25 MG PO (00:06)
== END 2022-07-26 06:53 | disposition home or self-care (01) ==
LOC: ED 03:08
PROVIDERS: Emergency Medicine
DX: T48.3X1A Poisoning by antitussives, accidental (unintentional), initial encounter (principal); J06.9 Acute upper respiratory infection, unspecified; F41.9 Anxiety disorder, unspecified; F32.A Depression, unspecified; K21.9 Gastro-esophageal reflux disease without esophagitis; Z96.653 Presence of artificial knee joint, bilateral; Z88.8 Allergy status to other drugs, medicaments and biological substances; Z98.890 Other specified postprocedural states; Y92.89 Other specified places as the place of occurrence of the external cause

== ENCOUNTER 2022-07-26 20:24 | Emergency (ER) | payer OTHER ==
[~2022-07-26] VITALS: Ht 157.4 cm; Wt 95.3 kg
[2022-07-26 22:30] LABS: BASO # 0.1 10*3/uL (0.0-0.1); BASO % 0.2 % (0.0-1.0); EOS % 0.1 % (1.0-4.0); HEMATOCRIT 41.6 % (37.0-47.0); LYMPH # 3.2 10*3/uL (1.3-4.4); LYMPH % 13.4 % (27.0-41.0); MEAN CELL VOLUME 81.4 fl (81.0-99.0); MEAN CORPUSCULAR HGB CONC 30.8 g/dl (33.0-37.0); MEAN PLATELET VOLUME 9.7 fl (9.6-12.3); MONO # 1.5 10*3/uL (0.1-1.0); MONO % 6.2 % (3.0-9.0); NEUT # 18.9 10*3/uL (2.3-7.9); NEUT % 79.5 % (47.0-73.0); PLATELET COUNT AUTOMATED 429 10*3/uL (130-400); RED BLOOD COUNT 5.11 10*6/uL (4.10-5.10); RED CELL DISTRI WIDTH 13.9 % (0-14.5); WHITE BLOOD COUNT 23.7 10*3/uL (4.8-10.8)
[2022-07-26 22:50] LABS: ALKALINE PHOSPHATASE 63 U/L (46-116); BUN 12 mg/dl (9-23); CHLORIDE 104 mmol/L (98-107); POTASSIUM 3.8 mmol/L (3.4-5.1); SGPT/ALT 31 U/L (10-49); TOTAL PROTEIN 7.3 gm/dL (6.0-8.0)
[2022-07-26 23:39] LABS: BILIRUBIN Negative (Negative); BLOOD Negative (Negative); CLARITY Clear (Clear); COLOR Yellow (Yellow); GLUCOSE Negative (Negative); KETONE 1+ (Negative); LEUKO ESTERASE Negative (Negative); NITRITE Negative (Negative); PH 6.5 (4.5-8.0); SPECIFIC GRAVITY 1.025 (1.001-1.030)
[2022-07-26 23:46] LABS: URINE AMPHETAMINES Negative (1000ng/ml); URINE BARBITURATES Negative (200ng/ml); URINE BENZODIAZEPINES Negative (200ng/ml); URINE CANNABINOIDS (THC) Negative (50ng/ml); URINE COCAINE Negative (300ng/ml); URINE METHADONE Negative (300ng/ml); URINE OPIATES Negative (300ng/ml); URINE PHENCYCLIDINE Negative (25ng/ml)
[2022-07-26 23:48] LABS: BACTERIA 1+; EPITHELIAL CELLS 16-20; MUCOUS 1+
[2022-07-27] MEDS ORDERED: Meclizine25 MG PO (00:06)
[2022-07-27] MEDS ORDERED: AMOX-CLAV 875-1 EACH PO (00:06)
== END 2022-07-27 00:10 | disposition home or self-care (01) ==
LOC: ED 20:24
PROVIDERS: Physician Assistant
DX: J01.90 Acute sinusitis, unspecified (principal); F41.9 Anxiety disorder, unspecified; F32.A Depression, unspecified; K21.9 Gastro-esophageal reflux disease without esophagitis; Z79.899 Other long term (current) drug therapy

== ENCOUNTER 2022-07-30 21:39 | Emergency (ER) | payer OTHER ==
[~2022-07-30 21:39] MED LIST changes: +AMOX-CLAV 875-1 EACH PO; +Meclizine25 MG PO
[2022-07-30 21:43] VITALS: BP 136/89
== END 2022-07-30 22:11 | disposition home or self-care (01) ==
LOC: ED 21:39
DX: S50.812A Abrasion of left forearm, initial encounter (principal); F41.9 Anxiety disorder, unspecified; F32.A Depression, unspecified; K21.9 Gastro-esophageal reflux disease without esophagitis; Z88.8 Allergy status to other drugs, medicaments and biological substances; Z96.653 Presence of artificial knee joint, bilateral; W27.4XXA Contact with kitchen utensil, initial encounter; Y93.89 Activity, other specified; Y92.89 Other specified places as the place of occurrence of the external cause; Y99.8 Other external cause status

== ENCOUNTER 2022-08-06 20:25 | Emergency (ER) | payer OTHER ==
[~2022-08-06] VITALS: Ht 157.4 cm; Wt 106.6 kg
[2022-08-06 20:34] VITALS: BP 141/87
[2022-08-06] MEDS ORDERED: Ondansetron4 MG PO (20:47)
== END 2022-08-06 21:02 | disposition home or self-care (01) ==
LOC: ED 20:25
DX: R11.2 Nausea with vomiting, unspecified (principal); R51.9 Headache, unspecified; F41.9 Anxiety disorder, unspecified; F32.A Depression, unspecified; K21.9 Gastro-esophageal reflux disease without esophagitis; Z98.890 Other specified postprocedural states; Z88.8 Allergy status to other drugs, medicaments and biological substances

== ENCOUNTER 2022-08-19 12:29 | Emergency (ER) | payer OTHER ==
[~2022-08-19] VITALS: Ht 154.9 cm; Wt 102.1 kg
[~2022-08-19 12:29] MED LIST changes: +Ondansetron4 MG PO
[2022-08-19 12:39] VITALS: BP 131/49
[2022-08-19 13:44] LABS: BASO % 0.5 % (0.0-1.0); HEMATOCRIT 41.8 % (37.0-47.0); LYMPH # 0.6 10*3/uL (1.3-4.4); LYMPH % 13.8 % (27.0-41.0); MEAN CELL VOLUME 79.6 fl (81.0-99.0); MEAN CORPUSCULAR HGB 24.6 pg (27.0-31.0); MEAN CORPUSCULAR HGB CONC 30.9 g/dl (33.0-37.0); MEAN PLATELET VOLUME 9.8 fl (9.6-12.3); MONO # 0.3 10*3/uL (0.1-1.0); MONO % 7.9 % (3.0-9.0); NEUT # 3.3 10*3/uL (2.3-7.9); NEUT % 77.3 % (47.0-73.0); PLATELET COUNT AUTOMATED 238 10*3/uL (130-400); RED BLOOD COUNT 5.25 10*6/uL (4.10-5.10); RED CELL DISTRI WIDTH 14.6 % (0-14.5); WHITE BLOOD COUNT 4.3 10*3/uL (4.8-10.8)
[2022-08-19 13:56] LABS: ACT PARTIAL THROMBO TIME 29.3 SECONDS (20.0-32.1); ALKALINE PHOSPHATASE 53 U/L (46-116); BETA-HCG, QUANT < 3.0 mIU/mL (0-10); BUN 8 mg/dl (9-23); CHLORIDE 96 mmol/L (98-107); INTERNATIONAL NORM RATIO 1.1 (2.0-3.5); LIPASE 43 U/L (12-53); POTASSIUM 3.5 mmol/L (3.4-5.1); SGPT/ALT 18 U/L (10-49); TOTAL PROTEIN 7.3 gm/dL (6.0-8.0)
[2022-08-19 14:47] LABS: BILIRUBIN 2+ (Negative); BLOOD Negative (Negative); CLARITY Cloudy (Clear); COLOR Dark Yellow (Yellow); GLUCOSE Negative (Negative); KETONE 3+ (Negative); LEUKO ESTERASE Trace (Negative); NITRITE Negative (Negative); SPECIFIC GRAVITY >= 1.030 (1.001-1.030)
[2022-08-19 15:29] LABS: BACTERIA 2+; MUCOUS 2+; RBC 0-2 rbc/hpf (0-2)
[2022-08-19] MEDS ORDERED: PHENERGAN25 M3 PO (18:34)
[2022-08-19] MEDS ORDERED: Motrin,Rufen800 MG PO (18:34)
== END 2022-08-19 18:49 | disposition home or self-care (01) ==
LOC: ED 12:29
PROVIDERS: Physician Assistant
DX: B34.9 Viral infection, unspecified (principal); Z20.822 Contact with and (suspected) exposure to COVID-19; Z88.8 Allergy status to other drugs, medicaments and biological substances; Z79.899 Other long term (current) drug therapy

== ENCOUNTER → 2022-08-25 | Outpatient (CLI) | payer OTHER ==
[~2022-08-25] MED LIST changes: +PHENERGAN25 M3 PO
== END | disposition home or self-care (01) ==
LOC: CARD 12:20
PROVIDERS: ATTEND Internal Medicine
DX: R55 Syncope and collapse (principal)

== ENCOUNTER 2022-10-15 00:06 | Emergency (ER) | payer OTHER ==
[~2022-10-15] VITALS: Ht 157.4 cm; Wt 106.1 kg
[2022-10-15 00:09] VITALS: BP 141/87
== END 2022-10-15 00:47 | disposition home or self-care (01) ==
LOC: ED 00:06
DX: S80.12XA Contusion of left lower leg, initial encounter (principal); F41.9 Anxiety disorder, unspecified; F32.A Depression, unspecified; K21.9 Gastro-esophageal reflux disease without esophagitis; Z88.8 Allergy status to other drugs, medicaments and biological substances; Z98.890 Other specified postprocedural states; W19.XXXA Unspecified fall, initial encounter; Y93.89 Activity, other specified; Y92.89 Other specified places as the place of occurrence of the external cause; Y99.8 Other external cause status

== ENCOUNTER → 2022-10-18 | Outpatient (CLI) | payer OTHER | END | disposition home or self-care (01) | LOC: RAD 12:40 | PROVIDERS: ATTEND Nurse Practitioner Family | DX: M79.89 Other specified soft tissue disorders (principal); M79.605 Pain in left leg ==

== ENCOUNTER 2022-11-11 02:16 | Emergency (ER) | payer OTHER ==
[~2022-11-11] VITALS: Ht 157.4 cm; Wt 115.5 kg
[2022-11-11 02:52] LABS: BASO % 0.2 % (0.0-1.0); EOS % 7.8 % (1.0-4.0); HEMATOCRIT 35.1 % (37.0-47.0); LYMPH % 31.1 % (27.0-41.0); MEAN CELL VOLUME 78.9 fl (81.0-99.0); MEAN CORPUSCULAR HGB 24.5 pg (27.0-31.0); MEAN CORPUSCULAR HGB CONC 31.1 g/dl (33.0-37.0); MEAN PLATELET VOLUME 9.8 fl (9.6-12.3); MONO # 0.7 10*3/uL (0.1-1.0); MONO % 5.7 % (3.0-9.0); PLATELET COUNT AUTOMATED 358 10*3/uL (130-400); RED BLOOD COUNT 4.45 10*6/uL (4.10-5.10); RED CELL DISTRI WIDTH 14.1 % (0-14.5); WHITE BLOOD COUNT 12.8 10*3/uL (4.8-10.8)
[2022-11-11 03:36] LABS: ALKALINE PHOSPHATASE 61 U/L (46-116); BUN 10 mg/dl (9-23); CHLORIDE 106 mmol/L (98-107); LIPASE 49 U/L (12-53); POTASSIUM 3.7 mmol/L (3.4-5.1); SGPT/ALT 17 U/L (10-49); TOTAL PROTEIN 6.4 gm/dL (6.0-8.0)
[2022-11-11] MEDS ORDERED: ZITHROMAX250 MG PO (04:17)
[2022-11-11] MEDS ORDERED: PROVENTIL HFA6.7 GM INH (04:17)
[2022-11-11 04:20] VITALS: BP 143/65
== END 2022-11-11 04:20 | disposition home or self-care (01) ==
LOC: ED 02:16
PROVIDERS: Emergency Medicine
DX: J44.9 Chronic obstructive pulmonary disease, unspecified (principal); R07.89 Other chest pain; R73.9 Hyperglycemia, unspecified; F41.9 Anxiety disorder, unspecified; F32.A Depression, unspecified; K21.9 Gastro-esophageal reflux disease without esophagitis; Z88.8 Allergy status to other drugs, medicaments and biological substances; Z98.890 Other specified postprocedural states; Z87.891 Personal history of nicotine dependence

== ENCOUNTER 2022-11-21 01:03 | Emergency (ER) | payer OTHER ==
[~2022-11-21] VITALS: Ht 157.4 cm; Wt 102.1 kg
[~2022-11-21 01:03] MED LIST changes: +ZITHROMAX250 MG PO
[2022-11-21 01:11] VITALS: BP 155/99
== END 2022-11-21 03:48 | disposition home or self-care (01) ==
LOC: ED 01:03
DX: F41.9 Anxiety disorder, unspecified (principal); F32.A Depression, unspecified; K21.9 Gastro-esophageal reflux disease without esophagitis; Z88.8 Allergy status to other drugs, medicaments and biological substances; Z98.890 Other specified postprocedural states

== ENCOUNTER 2022-11-29 01:10 | Emergency (ER) | payer OTHER ==
[~2022-11-29] VITALS: Ht 157.4 cm; Wt 99.8 kg
[2022-11-29 01:10] VITALS: BP 162/100
[2022-11-29] MEDS ORDERED: EFFEXOR XR37.5 MG PO (01:27)
[2022-11-29] MEDS ORDERED: ATARAX,VISTARIL50 MG PO (01:27)
[2022-11-29 02:09] LABS: BASO % 0.3 % (0.0-1.0); EOS % 8.1 % (1.0-4.0); HEMATOCRIT 35.1 % (37.0-47.0); LYMPH # 3.3 10*3/uL (1.3-4.4); LYMPH % 26.2 % (27.0-41.0); MEAN CELL VOLUME 79.8 fl (81.0-99.0); MEAN CORPUSCULAR HGB 24.1 pg (27.0-31.0); MEAN CORPUSCULAR HGB CONC 30.2 g/dl (33.0-37.0); MEAN PLATELET VOLUME 10.1 fl (9.6-12.3); MONO # 0.8 10*3/uL (0.1-1.0); MONO % 6.2 % (3.0-9.0); NEUT # 7.4 10*3/uL (2.3-7.9); PLATELET COUNT AUTOMATED 364 10*3/uL (130-400); RED CELL DISTRI WIDTH 14.8 % (0-14.5); WHITE BLOOD COUNT 12.6 10*3/uL (4.8-10.8)
[2022-11-29 02:32] LABS: ALKALINE PHOSPHATASE 58 U/L (46-116); BUN 9 mg/dl (9-23); CHLORIDE 105 mmol/L (98-107); POTASSIUM 3.3 mmol/L (3.4-5.1); SGPT/ALT 26 U/L (10-49); TOTAL PROTEIN 6.7 gm/dL (6.0-8.0)
== END 2022-11-29 02:55 | disposition home or self-care (01) ==
LOC: ED 01:10
PROVIDERS: Internal Medicine
DX: R07.89 Other chest pain (principal); E87.6 Hypokalemia; D72.829 Elevated white blood cell count, unspecified; D64.9 Anemia, unspecified; F41.9 Anxiety disorder, unspecified; F32.A Depression, unspecified; K21.9 Gastro-esophageal reflux disease without esophagitis; Z88.8 Allergy status to other drugs, medicaments and biological substances; Z98.890 Other specified postprocedural states

== ENCOUNTER 2023-01-04 22:10 | Emergency (ER) | payer OTHER ==
[~2023-01-04 22:10] MED LIST changes: +ATARAX,VISTARIL50 MG PO; +EFFEXOR XR37.5 MG PO
[2023-01-04 23:37] VITALS: BP 129/74
== END 2023-01-05 01:32 | disposition home or self-care (01) ==
LOC: ED 22:10
DX: S63.502A Unspecified sprain of left wrist, initial encounter (principal); J44.9 Chronic obstructive pulmonary disease, unspecified; F41.9 Anxiety disorder, unspecified; F32.A Depression, unspecified; K21.9 Gastro-esophageal reflux disease without esophagitis; Z88.8 Allergy status to other drugs, medicaments and biological substances; Z98.890 Other specified postprocedural states; W22.03XA Walked into furniture, initial encounter; Y93.89 Activity, other specified; Y92.89 Other specified places as the place of occurrence of the external cause; Y99.8 Other external cause status

== ENCOUNTER 2023-02-17 00:03 | Emergency (ER) | payer OTHER ==
[~2023-02-17] VITALS: Ht 160 cm; Wt 106.1 kg
[2023-02-17 00:17] VITALS: BP 125/59
[2023-02-17 00:42] LABS: BILIRUBIN Negative (Negative); BLOOD 2+ (Negative); CLARITY Turbid (Clear); COLOR Yellow (Yellow); GLUCOSE Negative (Negative); KETONE Negative (Negative); LEUKO ESTERASE 3+ (Negative); NITRITE Negative (Negative); UROBILINOGEN 0.2 E.U./dl (0.0-1.0)
[2023-02-17 00:51] LABS: WBC TNTC wbc/hpf (0-5)
[2023-02-17] MEDS ORDERED: CIPRO500 MG PO (01:11)
== END 2023-02-17 01:17 | disposition home or self-care (01) ==
LOC: ED 00:03
PROVIDERS: Internal Medicine
DX: N39.0 Urinary tract infection, site not specified (principal); R21 Rash and other nonspecific skin eruption; F41.9 Anxiety disorder, unspecified; F32.A Depression, unspecified; K21.9 Gastro-esophageal reflux disease without esophagitis; Z88.8 Allergy status to other drugs, medicaments and biological substances; Z98.890 Other specified postprocedural states

== ENCOUNTER 2023-03-03 23:35 | Emergency (ER) | payer OTHER ==
[2023-03-04 00:11] VITALS: BP 130/58
[2023-03-04 00:25] LABS: BASO % 0.2 % (0.0-1.0); EOS % 7.4 % (1.0-4.0); HEMATOCRIT 34.4 % (37.0-47.0); LYMPH # 3.5 10*3/uL (1.3-4.4); LYMPH % 25.2 % (27.0-41.0); MEAN CELL VOLUME 76.3 fl (81.0-99.0); MEAN CORPUSCULAR HGB 22.4 pg (27.0-31.0); MEAN CORPUSCULAR HGB CONC 29.4 g/dl (33.0-37.0); MEAN PLATELET VOLUME 9.6 fl (9.6-12.3); MONO # 0.7 10*3/uL (0.1-1.0); MONO % 5.3 % (3.0-9.0); NEUT # 8.5 10*3/uL (2.3-7.9); NEUT % 61.5 % (47.0-73.0); PLATELET COUNT AUTOMATED 426 10*3/uL (130-400); RED BLOOD COUNT 4.51 10*6/uL (4.10-5.10); WHITE BLOOD COUNT 13.7 10*3/uL (4.8-10.8)
[2023-03-04 00:36] LABS: ACT PARTIAL THROMBO TIME 24.2 SECONDS (20.0-32.1); INTERNATIONAL NORM RATIO 0.9 (2.0-3.5)
[2023-03-04 00:46] LABS: ALKALINE PHOSPHATASE 63 U/L (46-116); BUN 6 mg/dl (9-23); CHLORIDE 106 mmol/L (98-107); LIPASE 38 U/L (12-53); POTASSIUM 3.6 mmol/L (3.4-5.1); SGPT/ALT 21 U/L (10-49); TOTAL PROTEIN 6.8 gm/dL (6.0-8.0)
[2023-03-04 00:47] LABS: BETA-HCG, QUANT < 3.0 mIU/mL (3-10)
[2023-03-04 00:48] LABS: B-hCG (QUALITATIVE) NEGATIVE (NEGATIVE)
[2023-03-04 01:31] LABS: BILIRUBIN Negative (Negative); BLOOD Negative (Negative); CLARITY Turbid (Clear); COLOR Yellow (Yellow); GLUCOSE Negative (Negative); KETONE Negative (Negative); LEUKO ESTERASE Negative (Negative); NITRITE Negative (Negative); SPECIFIC GRAVITY 1.015 (1.001-1.030)
[2023-03-04 01:37] LABS: BACTERIA 1+; RBC 0-2 rbc/hpf (0-2)
[2023-03-04] MEDS ORDERED: CIPRO500 MG PO (02:44)
== END 2023-03-04 03:00 | disposition home or self-care (01) ==
LOC: ED 23:35
PROVIDERS: Internal Medicine
DX: R07.89 Other chest pain (principal); F41.9 Anxiety disorder, unspecified; K21.9 Gastro-esophageal reflux disease without esophagitis; Z88.8 Allergy status to other drugs, medicaments and biological substances; Z98.890 Other specified postprocedural states; F32.A Depression, unspecified

== ENCOUNTER → 2023-03-07 | Outpatient (CLI) | payer OTHER | END | disposition home or self-care (01) | LOC: MRI 02-28 14:00 | PROVIDERS: ATTEND Orthopaedic Surgery | DX: M25.461 Effusion, right knee (principal); M22.41 Chondromalacia patellae, right knee; M25.361 Other instability, right knee; M67.51 Plica syndrome, right knee ==

== ENCOUNTER 2023-04-11 17:10 | Emergency (ER) | payer OTHER ==
[~2023-04-11] VITALS: Ht 157.4 cm; Wt 101.2 kg
[2023-04-11 18:42] LABS: BASO % 0.3 % (0.0-1.0); EOS # 0.7 10*3/uL (0.0-0.4); EOS % 8.6 % (1.0-4.0); HEMATOCRIT 36.7 % (37.0-47.0); LYMPH # 2.9 10*3/uL (1.3-4.4); LYMPH % 34.2 % (27.0-41.0); MEAN CELL VOLUME 74.3 fl (81.0-99.0); MEAN CORPUSCULAR HGB 21.9 pg (27.0-31.0); MEAN CORPUSCULAR HGB CONC 29.4 g/dl (33.0-37.0); MEAN PLATELET VOLUME 9.6 fl (9.6-12.3); MONO # 0.4 10*3/uL (0.1-1.0); MONO % 4.9 % (3.0-9.0); NEUT # 4.5 10*3/uL (2.3-7.9); NEUT % 51.8 % (47.0-73.0); PLATELET COUNT AUTOMATED 454 10*3/uL (130-400); RED BLOOD COUNT 4.94 10*6/uL (4.10-5.10); RED CELL DISTRI WIDTH 15.9 % (0-14.5); WHITE BLOOD COUNT 8.6 10*3/uL (4.8-10.8)
[2023-04-11 18:53] LABS: ACT PARTIAL THROMBO TIME 26.7 SECONDS (20.0-32.1)
[2023-04-11 19:34] VITALS: BP 152/59
[2023-04-11 19:46] LABS: ALKALINE PHOSPHATASE 72 U/L (46-116); BETA-HCG, QUANT < 3.0 mIU/mL (3-10); BUN 6 mg/dl (9-23); CHLORIDE 107 mmol/L (98-107); LIPASE 42 U/L (12-53); SGPT/ALT 22 U/L (5-49)
[2023-04-11] MEDS ORDERED: ANUSOL-HC25 MG R (22:22)
== END 2023-04-11 22:39 | disposition home or self-care (01) ==
LOC: ED 17:10
PROVIDERS: Emergency Medicine
DX: K64.9 Unspecified hemorrhoids (principal); R10.30 Lower abdominal pain, unspecified; R42 Dizziness and giddiness; F41.9 Anxiety disorder, unspecified; F32.A Depression, unspecified; K21.9 Gastro-esophageal reflux disease without esophagitis; Z96.653 Presence of artificial knee joint, bilateral; Z88.8 Allergy status to other drugs, medicaments and biological substances; Z98.890 Other specified postprocedural states

== ENCOUNTER 2023-05-27 22:43 | Emergency (ER) | payer OTHER ==
[~2023-05-27] VITALS: Ht 157.4 cm; Wt 97.1 kg
[~2023-05-27 22:43] MED LIST changes: +ANUSOL-HC25 MG R
[2023-05-27 23:51] VITALS: BP 127/64
[2023-05-28 00:40] LABS: BASO % 0.3 % (0.0-1.0); EOS # 0.9 10*3/uL (0.0-0.4); EOS % 6.6 % (1.0-4.0); HEMATOCRIT 36.3 % (37.0-47.0); LYMPH # 3.8 10*3/uL (1.3-4.4); LYMPH % 27.9 % (27.0-41.0); MEAN CELL VOLUME 75.3 fl (81.0-99.0); MEAN CORPUSCULAR HGB 21.6 pg (27.0-31.0); MEAN CORPUSCULAR HGB CONC 28.7 g/dl (33.0-37.0); MEAN PLATELET VOLUME 10.2 fl (9.6-12.3); MONO # 0.7 10*3/uL (0.1-1.0); MONO % 5.2 % (3.0-9.0); NEUT # 8.2 10*3/uL (2.3-7.9); NEUT % 59.7 % (47.0-73.0); PLATELET COUNT AUTOMATED 398 10*3/uL (130-400); RED BLOOD COUNT 4.82 10*6/uL (4.10-5.10); RED CELL DISTRI WIDTH 17.2 % (0-14.5); WHITE BLOOD COUNT 13.7 10*3/uL (4.8-10.8)
[2023-05-28 00:50] LABS: ACT PARTIAL THROMBO TIME 25.9 SECONDS (20.0-32.1)
[2023-05-28 00:55] LABS: BILIRUBIN Negative (Negative); BLOOD Negative (Negative); CLARITY Turbid (Clear); COLOR Yellow (Yellow); GLUCOSE Negative (Negative); KETONE Trace (Negative); LEUKO ESTERASE Negative (Negative); NITRITE Negative (Negative); SPECIFIC GRAVITY 1.025 (1.001-1.030)
[2023-05-28 01:01] LABS: ALKALINE PHOSPHATASE 69 U/L (46-116); BUN 10 mg/dl (9-23); CHLORIDE 106 mmol/L (98-107); LIPASE 42 U/L (12-53); POTASSIUM 3.7 mmol/L (3.4-5.1); SGPT/ALT 17 U/L (5-49); TOTAL PROTEIN 6.9 gm/dL (6.0-8.0)
[2023-05-28 01:34] LABS: BACTERIA 1+; EPITHELIAL CELLS 21-30; WBC 0-2 wbc/hpf (0-5)
[2023-05-28] MEDS ORDERED: CIPRO500 MG PO (01:40)
== END 2023-05-28 02:13 | disposition home or self-care (01) ==
LOC: ED 22:43
PROVIDERS: Internal Medicine
DX: N39.0 Urinary tract infection, site not specified (principal); R10.2 Pelvic and perineal pain; F41.9 Anxiety disorder, unspecified; F32.A Depression, unspecified; K21.9 Gastro-esophageal reflux disease without esophagitis; Z88.8 Allergy status to other drugs, medicaments and biological substances; Z98.890 Other specified postprocedural states

== ENCOUNTER → 2023-06-12 | Outpatient (CLI) | payer OTHER ==
[2023-06-12 13:59] LABS: BASO % 0.3 % (0.0-1.0); EOS # 0.8 10*3/uL (0.0-0.4); EOS % 7.8 % (1.0-4.0); HEMATOCRIT 38.9 % (37.0-47.0); LYMPH # 2.8 10*3/uL (1.3-4.4); LYMPH % 27.3 % (27.0-41.0); MEAN CELL VOLUME 75.1 fl (81.0-99.0); MEAN CORPUSCULAR HGB 21.6 pg (27.0-31.0); MEAN CORPUSCULAR HGB CONC 28.8 g/dl (33.0-37.0); MEAN PLATELET VOLUME 9.8 fl (9.6-12.3); MONO # 0.5 10*3/uL (0.1-1.0); MONO % 4.6 % (3.0-9.0); NEUT # 6.2 10*3/uL (2.3-7.9); NEUT % 59.8 % (47.0-73.0); PLATELET COUNT AUTOMATED 397 10*3/uL (130-400); RED BLOOD COUNT 5.18 10*6/uL (4.10-5.10); RED CELL DISTRI WIDTH 17.5 % (0-14.5); WHITE BLOOD COUNT 10.4 10*3/uL (4.8-10.8)
[2023-06-12 14:21] LABS: URINE CREATININE RANDOM 150.59 mg/dL
[2023-06-12 14:43] LABS: ALKALINE PHOSPHATASE 74 U/L (46-116); BUN 10 mg/dl (9-23); CHLORIDE 106 mmol/L (98-107); CHOLESTEROL 176 mg/dL (<200); LDL CHOLESTEROL 97 mg/dL (9-159); POTASSIUM 3.9 mmol/L (3.4-5.1); SGPT/ALT 18 U/L (5-49); TOTAL PROTEIN 7.3 gm/dL (6.0-8.0); TRIGLYCERIDES 247 mg/dl (<150)
[2023-06-12 14:44] LABS: VITAMIN D, 25-HYDROXY 22.1 ng/mL (30-100)
== END | disposition home or self-care (01) ==
LOC: LAB 13:27
PROVIDERS: ATTEND Internal Medicine
DX: E11.9 Type 2 diabetes mellitus without complications (principal); E78.5 Hyperlipidemia, unspecified; E55.9 Vitamin D deficiency, unspecified; E53.8 Deficiency of other specified B group vitamins

== ENCOUNTER 2023-06-27 16:42 | Emergency (ER) | payer OTHER ==
[~2023-06-27] VITALS: Ht 157.4 cm; Wt 98.0 kg
[2023-06-27 17:06] VITALS: BP 136/81
== END 2023-06-27 19:42 | disposition home or self-care (01) ==
LOC: ED 16:42
DX: S60.221A Contusion of right hand, initial encounter (principal); F41.9 Anxiety disorder, unspecified; F32.A Depression, unspecified; K21.9 Gastro-esophageal reflux disease without esophagitis; Z88.8 Allergy status to other drugs, medicaments and biological substances; Z98.890 Other specified postprocedural states; W22.8XXA Striking against or struck by other objects, initial encounter; Y93.89 Activity, other specified; Y92.89 Other specified places as the place of occurrence of the external cause; Y99.8 Other external cause status

== ENCOUNTER 2023-07-18 21:31 | Emergency (ER) | payer OTHER ==
[~2023-07-18] VITALS: Ht 157.4 cm; Wt 98.0 kg
[2023-07-18] MEDS ORDERED: CAPLYTA42 MG PO (21:42)
[2023-07-18] MEDS ORDERED: BUSPIRONE HCL7.5 MG PO (21:42)
[2023-07-18] MEDS ORDERED: ZESTRIL10 MG PO (21:43)
[2023-07-18] MEDS ORDERED: SODIUM CHLORIDE 0.9% 1,000 ML IV ONE (21:50)
[2023-07-18] MEDS ORDERED: Ketorolac Tromethamine 30 MG/ML VIAL IV ONE (21:50)
[2023-07-18] MEDS ORDERED: ACETAMINOPHEN 325 MG TAB PO ONE (21:50)
[2023-07-18] MEDS ORDERED: Metoclopramide Hydrochloride 10 MG/2 ML AMP IV ONE (21:50)
[2023-07-18] MEDS ORDERED: diphenhydrAMINE hydrochloride 50 MG/ML VIAL IV ONE (21:50)
[2023-07-18 22:35] VITALS: BP 140/96
[2023-07-18] MEDS ORDERED: REGLAN10 M1 PO (23:08)
== END 2023-07-19 00:55 | disposition home or self-care (01) ==
LOC: ED 21:31
DX: R51.9 Headache, unspecified (principal); F41.9 Anxiety disorder, unspecified; F32.A Depression, unspecified; K21.9 Gastro-esophageal reflux disease without esophagitis; Z96.653 Presence of artificial knee joint, bilateral; Z88.8 Allergy status to other drugs, medicaments and biological substances; Z98.890 Other specified postprocedural states; Z87.891 Personal history of nicotine dependence

== ENCOUNTER 2023-08-17 16:57 | Emergency (ER) | payer OTHER ==
[~2023-08-17] VITALS: Ht 160 cm; Wt 98.0 kg
[~2023-08-17 16:57] MED LIST changes: +BUSPIRONE HCL7.5 MG PO; +CAPLYTA42 MG PO; +REGLAN10 M1 PO; +ZESTRIL10 MG PO
[2023-08-17 17:19] VITALS: BP 120/60
== END 2023-08-17 19:43 | disposition home or self-care (01) ==
LOC: ED 16:57
DX: N64.4 Mastodynia (principal); L53.9 Erythematous condition, unspecified; F17.200 Nicotine dependence, unspecified, uncomplicated; Z88.8 Allergy status to other drugs, medicaments and biological substances; Z79.899 Other long term (current) drug therapy

== ENCOUNTER 2023-09-07 15:31 | Emergency (ER) | payer OTHER ==
[2023-09-07 15:37] VITALS: BP 126/78
[2023-09-07] MEDS ORDERED: methylPREDNISolone sod succ 125 MG VIAL IM ONE (15:55)
[2023-09-07] MEDS ORDERED: diphenhydrAMINE hydrochloride 25 MG CAP PO ONE (15:55)
[2023-09-07] MEDS ORDERED: Ondansetron Hydrochloride 4 MG TAB SL ONE (15:55)
[2023-09-07] MEDS ORDERED: PREDNISONE20 M1 PO (15:57)
== END 2023-09-07 15:59 | disposition home or self-care (01) ==
LOC: ED 15:31
DX: T63.461A Toxic effect of venom of wasps, accidental (unintentional), initial encounter (principal); J45.909 Unspecified asthma, uncomplicated; J44.9 Chronic obstructive pulmonary disease, unspecified; E87.6 Hypokalemia; E11.65 Type 2 diabetes mellitus with hyperglycemia; F41.9 Anxiety disorder, unspecified; D64.9 Anemia, unspecified; F32.A Depression, unspecified; K21.9 Gastro-esophageal reflux disease without esophagitis; Z88.8 Allergy status to other drugs, medicaments and biological substances; Z98.890 Other specified postprocedural states; Y92.89 Other specified places as the place of occurrence of the external cause

== ENCOUNTER 2023-09-15 21:05 | Emergency (ER) | payer OTHER ==
[~2023-09-15] VITALS: Ht 157.4 cm; Wt 98.0 kg
[2023-09-15 21:31] VITALS: BP 137/99
[2023-09-15] MEDS ORDERED: PREDNISONE10 M1 PO (22:01)
[2023-09-15] MEDS ORDERED: Dexamethasone Sodium Phospha 20 MG/5 ML VIAL IM ONE (22:05)
== END 2023-09-15 22:17 | disposition home or self-care (01) ==
LOC: ED 21:05
DX: M65.321 Trigger finger, right index finger (principal); F41.9 Anxiety disorder, unspecified; F32.A Depression, unspecified; K21.9 Gastro-esophageal reflux disease without esophagitis; Z88.8 Allergy status to other drugs, medicaments and biological substances; Z98.890 Other specified postprocedural states; Z87.891 Personal history of nicotine dependence

== ENCOUNTER 2023-10-02 22:57 | Emergency (ER) | payer OTHER ==
[~2023-10-02] VITALS: Ht 157.4 cm; Wt 101.6 kg
[~2023-10-02 22:57] MED LIST changes: +PREDNISONE10 M1 PO
[2023-10-02 23:14] VITALS: BP 110/70
[2023-10-02 23:57] LABS: BILIRUBIN Negative (Negative); BLOOD Negative (Negative); CLARITY Clear (Clear); COLOR Yellow (Yellow); GLUCOSE Negative (Negative); KETONE Negative (Negative); LEUKO ESTERASE Negative (Negative); NITRITE Negative (Negative); PH 6.5 (4.5-8.0)
[2023-10-03 00:06] LABS: BACTERIA 1+; MUCOUS 1+
[2023-10-03] MEDS ORDERED: Ketorolac Tromethamine 60 MG/2 ML VIAL IM ONE (00:15)
== END 2023-10-03 00:54 | disposition home or self-care (01) ==
LOC: ED 22:57
PROVIDERS: Emergency Medicine
DX: G43.909 Migraine, unspecified, not intractable, without status migrainosus (principal); R19.7 Diarrhea, unspecified; F41.9 Anxiety disorder, unspecified; E87.6 Hypokalemia; E11.65 Type 2 diabetes mellitus with hyperglycemia; D64.9 Anemia, unspecified; F32.A Depression, unspecified; K21.9 Gastro-esophageal reflux disease without esophagitis; Z88.8 Allergy status to other drugs, medicaments and biological substances; Z98.890 Other specified postprocedural states; Z87.891 Personal history of nicotine dependence

== ENCOUNTER 2023-12-08 22:00 | Emergency (ER) | payer OTHER ==
[~2023-12-08] VITALS: Ht 157.4 cm; Wt 102.5 kg
[2023-12-08 22:43] VITALS: BP 130/84
[2023-12-08] MEDS ORDERED: TOPCARE OMEPRAZ20 MG PO (22:44)
[2023-12-08 23:39] LABS: BASO % 0.2 % (0.0-1.0); EOS # 0.7 10*3/uL (0.0-0.4); EOS % 5.9 % (1.0-4.0); HEMATOCRIT 34.5 % (37.0-47.0); LYMPH # 3.4 10*3/uL (1.3-4.4); LYMPH % 27.3 % (27.0-41.0); MEAN CORPUSCULAR HGB 23.7 pg (27.0-31.0); MEAN CORPUSCULAR HGB CONC 30.7 g/dl (33.0-37.0); MEAN PLATELET VOLUME 9.5 fl (9.6-12.3); MONO # 0.6 10*3/uL (0.1-1.0); MONO % 5.1 % (3.0-9.0); NEUT # 7.5 10*3/uL (2.3-7.9); NEUT % 61.2 % (47.0-73.0); PLATELET COUNT AUTOMATED 375 10*3/uL (130-400); RED BLOOD COUNT 4.48 10*6/uL (4.10-5.10); RED CELL DISTRI WIDTH 15.4 % (0-14.5); WHITE BLOOD COUNT 12.3 10*3/uL (4.8-10.8)
[2023-12-08 23:50] LABS: ACT PARTIAL THROMBO TIME 24.3 SECONDS (20.0-32.1)
[2023-12-08 23:58] LABS: BUN 5 mg/dl (9-23); CHLORIDE 108 mmol/L (98-107); LIPASE 57 U/L (12-53); POTASSIUM 3.6 mmol/L (3.4-5.1)
== END 2023-12-09 01:41 | disposition home or self-care (01) ==
LOC: ED 22:00
PROVIDERS: Internal Medicine
DX: R07.89 Other chest pain (principal); I10 Essential (primary) hypertension; F41.9 Anxiety disorder, unspecified; F32.A Depression, unspecified; K21.9 Gastro-esophageal reflux disease without esophagitis; Z88.8 Allergy status to other drugs, medicaments and biological substances; Z98.890 Other specified postprocedural states

== ENCOUNTER 2024-01-15 20:48 | Emergency (ER) | payer OTHER ==
[~2024-01-15] VITALS: Ht 157.4 cm; Wt 102.5 kg
[~2024-01-15 20:48] MED LIST changes: +TOPCARE OMEPRAZ20 MG PO
[2024-01-15 20:52] VITALS: BP 139/74
== END 2024-01-15 22:53 | disposition home or self-care (01) ==
LOC: ED 20:48
DX: S86.911A Strain of unspecified muscle(s) and tendon(s) at lower leg level, right leg, initial encounter (principal); F41.9 Anxiety disorder, unspecified; F32.A Depression, unspecified; K21.9 Gastro-esophageal reflux disease without esophagitis; Z88.8 Allergy status to other drugs, medicaments and biological substances; Z96.653 Presence of artificial knee joint, bilateral; Z98.890 Other specified postprocedural states; X50.1XXA Overexertion from prolonged static or awkward postures, initial encounter; Y93.89 Activity, other specified; Y92.009 Unspecified place in unspecified non-institutional (private) residence as the place of occurrence of the external cause; Y99.8 Other external cause status

== ENCOUNTER 2024-02-15 21:30 | Emergency (ER) | payer OTHER ==
[~2024-02-15] VITALS: Ht 157.4 cm; Wt 102.5 kg
[2024-02-15 21:30] VITALS: BP 144/90
== END 2024-02-15 23:04 | disposition home or self-care (01) ==
LOC: ED 21:30
DX: S93.401A Sprain of unspecified ligament of right ankle, initial encounter (principal); F41.9 Anxiety disorder, unspecified; F32.A Depression, unspecified; K21.9 Gastro-esophageal reflux disease without esophagitis; Z88.8 Allergy status to other drugs, medicaments and biological substances; Z98.890 Other specified postprocedural states; X50.1XXA Overexertion from prolonged static or awkward postures, initial encounter; Y93.89 Activity, other specified; Y92.009 Unspecified place in unspecified non-institutional (private) residence as the place of occurrence of the external cause; Y99.8 Other external cause status

== ENCOUNTER 2024-02-23 23:24 | Emergency (ER) | payer OTHER ==
[~2024-02-23] VITALS: Ht 157.4 cm; Wt 99.8 kg
[2024-02-23 23:48] VITALS: BP 145/70
[2024-02-24 00:03] LABS: BASO % 0.3 % (0.0-1.0); EOS # 0.9 10*3/uL (0.0-0.4); EOS % 6.8 % (1.0-4.0); HEMATOCRIT 35.4 % (37.0-47.0); LYMPH # 3.5 10*3/uL (1.3-4.4); MEAN CORPUSCULAR HGB 23.6 pg (27.0-31.0); MEAN CORPUSCULAR HGB CONC 30.2 g/dl (33.0-37.0); MEAN PLATELET VOLUME 9.8 fl (9.6-12.3); MONO # 0.7 10*3/uL (0.1-1.0); MONO % 5.1 % (3.0-9.0); NEUT # 8.2 10*3/uL (2.3-7.9); NEUT % 61.4 % (47.0-73.0); PLATELET COUNT AUTOMATED 349 10*3/uL (130-400); RED BLOOD COUNT 4.54 10*6/uL (4.10-5.10); RED CELL DISTRI WIDTH 15.8 % (0-14.5); WHITE BLOOD COUNT 13.3 10*3/uL (4.8-10.8)
[2024-02-24 00:22] LABS: BUN 10 mg/dl (9-23); CHLORIDE 106 mmol/L (98-107); POTASSIUM 3.4 mmol/L (3.4-5.1)
== END 2024-02-24 00:56 | disposition home or self-care (01) ==
LOC: ED 23:24
PROVIDERS: Internal Medicine
DX: F41.9 Anxiety disorder, unspecified (principal); R07.89 Other chest pain; F32.A Depression, unspecified; K21.9 Gastro-esophageal reflux disease without esophagitis; Z88.8 Allergy status to other drugs, medicaments and biological substances; Z98.890 Other specified postprocedural states

== ENCOUNTER 2024-03-29 02:54 | Emergency (ER) | payer OTHER ==
[~2024-03-29] VITALS: Ht 162.5 cm; Wt 99.8 kg
[2024-03-29 03:05] VITALS: BP 141/84
[2024-03-29] MEDS ORDERED: LORazepam 1 MG TAB PO ONE (03:10)
== END 2024-03-29 04:25 | disposition home or self-care (01) ==
LOC: ED 02:54
DX: F41.9 Anxiety disorder, unspecified (principal); F32.A Depression, unspecified; K21.9 Gastro-esophageal reflux disease without esophagitis; Z88.8 Allergy status to other drugs, medicaments and biological substances; Z98.890 Other specified postprocedural states; Z96.653 Presence of artificial knee joint, bilateral

== ENCOUNTER 2024-04-12 22:29 | Emergency (ER) | payer OTHER ==
[~2024-04-12] VITALS: Ht 154.9 cm; Wt 108.9 kg
[2024-04-12 22:47] VITALS: BP 133/72
[2024-04-13 00:22] LABS: BASO % 0.3 % (0.0-1.0); EOS % 6.8 % (1.0-4.0); HEMATOCRIT 37.1 % (37.0-47.0); MEAN CELL VOLUME 77.1 fl (81.0-99.0); MEAN CORPUSCULAR HGB 22.9 pg (27.0-31.0); MEAN CORPUSCULAR HGB CONC 29.6 g/dl (33.0-37.0); MEAN PLATELET VOLUME 9.4 fl (9.6-12.3); MONO # 0.7 10*3/uL (0.1-1.0); MONO % 5.1 % (3.0-9.0); NEUT # 8.9 10*3/uL (2.3-7.9); NEUT % 63.8 % (47.0-73.0); PLATELET COUNT AUTOMATED 355 10*3/uL (130-400); RED BLOOD COUNT 4.81 10*6/uL (4.10-5.10); RED CELL DISTRI WIDTH 15.2 % (0-14.5)
[2024-04-13 00:51] LABS: ALKALINE PHOSPHATASE 77 U/L (46-116); BUN 10 mg/dl (9-23); CHLORIDE 104 mmol/L (98-107); POTASSIUM 4.1 mmol/L (3.4-5.1); SGPT/ALT 27 U/L (5-49)
== END 2024-04-13 04:17 | disposition home or self-care (01) ==
LOC: ED 22:29
PROVIDERS: Emergency Medicine
DX: R00.2 Palpitations (principal); F41.9 Anxiety disorder, unspecified; R00.0 Tachycardia, unspecified; J44.9 Chronic obstructive pulmonary disease, unspecified; E11.65 Type 2 diabetes mellitus with hyperglycemia; F32.A Depression, unspecified; K21.9 Gastro-esophageal reflux disease without esophagitis; Z88.8 Allergy status to other drugs, medicaments and biological substances; Z98.890 Other specified postprocedural states

== ENCOUNTER → 2024-04-17 | Outpatient (CLI) | payer OTHER | END | disposition home or self-care (01) | LOC: ORTHO 04:41 | PROVIDERS: ATTEND Orthopaedic Surgery | DX: M17.0 Bilateral primary osteoarthritis of knee (principal); M25.762 Osteophyte, left knee; M25.761 Osteophyte, right knee ==

== ENCOUNTER 2024-05-05 02:01 | Emergency (ER) | payer OTHER ==
[~2024-05-05] VITALS: Ht 157.4 cm; Wt 114.3 kg
[2024-05-05 02:13] VITALS: BP 148/84
[2024-05-05 02:29] LABS: BASO # 0.1 10*3/uL (0.0-0.1); BASO % 0.3 % (0.0-1.0); EOS # 0.9 10*3/uL (0.0-0.4); HEMATOCRIT 35.3 % (37.0-47.0); MEAN CELL VOLUME 76.6 fl (81.0-99.0); MEAN CORPUSCULAR HGB 22.8 pg (27.0-31.0); MEAN CORPUSCULAR HGB CONC 29.7 g/dl (33.0-37.0); MEAN PLATELET VOLUME 9.7 fl (9.6-12.3); MONO # 0.7 10*3/uL (0.1-1.0); MONO % 4.8 % (3.0-9.0); NEUT # 9.6 10*3/uL (2.3-7.9); NEUT % 65.3 % (47.0-73.0); PLATELET COUNT AUTOMATED 362 10*3/uL (130-400); RED BLOOD COUNT 4.61 10*6/uL (4.10-5.10); RED CELL DISTRI WIDTH 15.1 % (0-14.5); WHITE BLOOD COUNT 14.6 10*3/uL (4.8-10.8)
[2024-05-05 02:47] LABS: BUN 9 mg/dl (9-23); CHLORIDE 102 mmol/L (98-107); POTASSIUM 3.8 mmol/L (3.4-5.1)
== END 2024-05-05 03:29 | disposition home or self-care (01) ==
LOC: ED 02:01
PROVIDERS: Internal Medicine
DX: R06.09 Other forms of dyspnea (principal); E11.9 Type 2 diabetes mellitus without complications; F41.9 Anxiety disorder, unspecified; F32.A Depression, unspecified; K21.9 Gastro-esophageal reflux disease without esophagitis; Z88.8 Allergy status to other drugs, medicaments and biological substances; Z98.890 Other specified postprocedural states

== ENCOUNTER 2024-05-15 16:56 | Emergency (ER) | payer OTHER ==
[~2024-05-15] VITALS: Ht 157.4 cm; Wt 108.9 kg
[2024-05-15 17:08] VITALS: BP 146/112
[2024-05-15] MEDS ORDERED: ASPIRIN ADULT L81 M2 PO (18:09)
[2024-05-15] MEDS ORDERED: ATORVASTATIN CA40 M1 PO (18:09)
[2024-05-15] MEDS ORDERED: LATU80TA PO (18:09)
[2024-05-15] MEDS ORDERED: MINIPRESS1 M1 PO (18:10)
[2024-05-15] MEDS ORDERED: Acetaminophen/Hydrocodone 5 MG/325 MG TABLET PO ONE (18:45)
== END 2024-05-15 19:18 | disposition home or self-care (01) ==
LOC: ED 16:56
DX: S53.402A Unspecified sprain of left elbow, initial encounter (principal); Z88.8 Allergy status to other drugs, medicaments and biological substances; Z79.899 Other long term (current) drug therapy; Z79.82 Long term (current) use of aspirin; W10.8XXA Fall (on) (from) other stairs and steps, initial encounter; Y93.89 Activity, other specified; Y92.89 Other specified places as the place of occurrence of the external cause; Y99.8 Other external cause status

== ENCOUNTER 2024-08-03 05:14 | Emergency (ER) | payer OTHER ==
[~2024-08-03] VITALS: Ht 157.4 cm; Wt 108.9 kg
[~2024-08-03 05:14] MED LIST changes: +ASPIRIN ADULT L81 M2 PO; +ATORVASTATIN CA40 M1 PO; +LATU80TA PO; +MINIPRESS1 M1 PO
[2024-08-03 05:25] VITALS: BP 142/117
== END 2024-08-03 05:33 | disposition left against medical advice (07) ==
LOC: ED 05:14
DX: M79.89 Other specified soft tissue disorders (principal); F41.9 Anxiety disorder, unspecified; F32.A Depression, unspecified; K21.9 Gastro-esophageal reflux disease without esophagitis; Z53.29 Procedure and treatment not carried out because of patient's decision for other reasons; Z88.8 Allergy status to other drugs, medicaments and biological substances; Z98.890 Other specified postprocedural states

== ENCOUNTER 2024-08-09 23:18 | Emergency (ER) | payer OTHER ==
[~2024-08-09] VITALS: Wt 116.1 kg
[2024-08-09 23:59] VITALS: BP 137/85
[2024-08-10] MEDS ORDERED: Albuterol Sulf/Ipratropium 3 ML VIAL NEB ONE (00:25)
[2024-08-10] MEDS ORDERED: MEDROL DOSEPAK4 MG PO (02:27)
[2024-08-10] MEDS ORDERED: AVPAK AZITHROM250 MG PO (02:27)
== END 2024-08-10 02:36 | disposition home or self-care (01) ==
LOC: ED 23:18
DX: J40 Bronchitis, not specified as acute or chronic (principal); F17.200 Nicotine dependence, unspecified, uncomplicated; Z88.8 Allergy status to other drugs, medicaments and biological substances; Z79.899 Other long term (current) drug therapy; Z79.82 Long term (current) use of aspirin; Z79.84 Long term (current) use of oral hypoglycemic drugs

== ENCOUNTER 2024-09-17 03:55 | Emergency (ER) | payer OTHER ==
[~2024-09-17] VITALS: Ht 162.5 cm; Wt 108.9 kg
[~2024-09-17 03:55] MED LIST changes: +AVPAK AZITHROM250 MG PO; +MEDROL DOSEPAK4 MG PO
[2024-09-17] MEDS ORDERED: Sulfamethoxazole/Trimethopri 1 TAB TAB PO ONE (04:20)
[2024-09-17] MEDS ORDERED: SEPTDS PO (04:25)
== END 2024-09-17 04:31 | disposition home or self-care (01) ==
LOC: ED 03:55
DX: L02.416 Cutaneous abscess of left lower limb (principal); J45.909 Unspecified asthma, uncomplicated; F41.9 Anxiety disorder, unspecified; F32.A Depression, unspecified; K21.9 Gastro-esophageal reflux disease without esophagitis; Z88.8 Allergy status to other drugs, medicaments and biological substances; Z98.890 Other specified postprocedural states

== ENCOUNTER 2024-09-19 22:01 | Emergency (ER) | payer OTHER ==
[~2024-09-19] VITALS: Ht 157.4 cm; Wt 113.4 kg
[2024-09-19 22:01] VITALS: BP 142/86
[2024-09-19] MEDS ORDERED: CEPHALEXIN500 M1 PO (22:33)
[2024-09-19] MEDS ORDERED: CEPHALEXIN 500 MG CAP PO ONE (22:35)
== END 2024-09-19 22:39 | disposition home or self-care (01) ==
LOC: ED 22:01
DX: L02.416 Cutaneous abscess of left lower limb (principal); F41.9 Anxiety disorder, unspecified; J44.9 Chronic obstructive pulmonary disease, unspecified; Z88.8 Allergy status to other drugs, medicaments and biological substances; Z79.899 Other long term (current) drug therapy; Z79.82 Long term (current) use of aspirin; Z79.84 Long term (current) use of oral hypoglycemic drugs

== ENCOUNTER 2024-09-29 23:51 | Emergency (ER) | payer OTHER ==
[~2024-09-29] VITALS: Ht 157.4 cm; Wt 108.9 kg
[2024-09-30 00:13] VITALS: BP 153/82
[2024-09-30] MEDS ORDERED: SODIUM CHLORIDE 0.9% 1,000 ML IV ONE (00:45)
[2024-09-30 01:04] LABS: BASO % 0.4 % (0.0-1.0); EOS # 0.8 10*3/uL (0.0-0.4); EOS % 7.3 % (1.0-4.0); HEMATOCRIT 36.3 % (37.0-47.0); MEAN CORPUSCULAR HGB 21.2 pg (27.0-31.0); MEAN CORPUSCULAR HGB CONC 29.5 g/dl (33.0-37.0); MEAN PLATELET VOLUME 9.8 fl (9.6-12.3); MONO # 0.5 10*3/uL (0.1-1.0); MONO % 4.8 % (3.0-9.0); NEUT # 6.5 10*3/uL (2.3-7.9); PLATELET COUNT AUTOMATED 312 10*3/uL (130-400); RED BLOOD COUNT 5.04 10*6/uL (4.10-5.10); RED CELL DISTRI WIDTH 16.5 % (0-14.5); WHITE BLOOD COUNT 10.7 10*3/uL (4.8-10.8)
[2024-09-30 01:17] LABS: BILIRUBIN Negative (Negative); BLOOD Negative (Negative); CLARITY Clear (Clear); COLOR Yellow (Yellow); GLUCOSE 3+ (Negative); KETONE Trace (Negative); LEUKO ESTERASE Negative (Negative); NITRITE Negative (Negative); SPECIFIC GRAVITY >= 1.030 (1.001-1.030)
[2024-09-30 01:24] LABS: BACTERIA TRACE; EPITHELIAL CELLS 16-20; MUCOUS TRACE; RBC 0-2 rbc/hpf (0-2)
[2024-09-30 01:26] LABS: BUN 11 mg/dl (9-23); CHLORIDE 99 mmol/L (98-107); POTASSIUM 3.9 mmol/L (3.4-5.1)
== END 2024-09-30 04:12 | disposition home or self-care (01) ==
LOC: ED 23:51
PROVIDERS: Emergency Medicine
DX: E11.65 Type 2 diabetes mellitus with hyperglycemia (principal); F41.9 Anxiety disorder, unspecified; J44.9 Chronic obstructive pulmonary disease, unspecified; Z88.8 Allergy status to other drugs, medicaments and biological substances; Z79.899 Other long term (current) drug therapy; Z79.82 Long term (current) use of aspirin

== ENCOUNTER 2024-10-16 01:16 | Emergency (ER) | payer OTHER ==
[~2024-10-16] VITALS: Wt 108.9 kg
[2024-10-16 01:29] VITALS: BP 129/85
[2024-10-16 02:01] LABS: BILIRUBIN Negative (Negative); BLOOD Negative (Negative); CLARITY Clear (Clear); COLOR Yellow (Yellow); GLUCOSE 3+ (Negative); KETONE Negative (Negative); LEUKO ESTERASE 1+ (Negative); NITRITE Negative (Negative); PH 6.5 (4.5-8.0); SPECIFIC GRAVITY 1.025 (1.001-1.030)
[2024-10-16 02:15] LABS: BACTERIA 1+; EPITHELIAL CELLS 16-20
[2024-10-16] MEDS ORDERED: FLUCONAZOLE 100 MG TAB PO ONE (02:25)
[2024-10-16] MEDS ORDERED: Ciprofloxacin Hydrochloride 500 MG TAB PO ONE (02:25)
[2024-10-16] MEDS ORDERED: Ketorolac Tromethamine 60 MG/2 ML VIAL IM ONE (03:05)
== END 2024-10-16 02:59 | disposition home or self-care (01) ==
LOC: ED 01:16
PROVIDERS: Internal Medicine
DX: B37.49 Other urogenital candidiasis (principal); N39.0 Urinary tract infection, site not specified; E11.9 Type 2 diabetes mellitus without complications; J45.909 Unspecified asthma, uncomplicated; F32.A Depression, unspecified; F41.9 Anxiety disorder, unspecified; Z79.82 Long term (current) use of aspirin; Z79.899 Other long term (current) drug therapy; Z88.8 Allergy status to other drugs, medicaments and biological substances

== ENCOUNTER 2024-11-04 02:02 | Emergency (ER) | payer OTHER ==
[~2024-11-04] VITALS: Ht 157.4 cm; Wt 108.9 kg
[2024-11-04 02:12] VITALS: BP 138/69
[2024-11-04] MEDS ORDERED: NAPROXEN 250 MG TAB PO ONE (02:20)
[2024-11-04] MEDS ORDERED: NAPROSYN500 MG PO (02:23)
== END 2024-11-04 03:22 | disposition home or self-care (01) ==
LOC: ED 02:02
DX: S93.401A Sprain of unspecified ligament of right ankle, initial encounter (principal); S93.402A Sprain of unspecified ligament of left ankle, initial encounter; S80.01XA Contusion of right knee, initial encounter; E11.9 Type 2 diabetes mellitus without complications; J45.909 Unspecified asthma, uncomplicated; F32.A Depression, unspecified; F41.9 Anxiety disorder, unspecified; K21.9 Gastro-esophageal reflux disease without esophagitis; Z79.82 Long term (current) use of aspirin; Z79.899 Other long term (current) drug therapy; Z88.8 Allergy status to other drugs, medicaments and biological substances; Z98.890 Other specified postprocedural states; W17.81XA Fall down embankment (hill), initial encounter; Y93.89 Activity, other specified; Y92.89 Other specified places as the place of occurrence of the external cause; Y99.8 Other external cause status

== ENCOUNTER 2024-11-10 03:28 | Emergency (ER) | payer OTHER ==
[~2024-11-10] VITALS: Ht 157.4 cm
[2024-11-10 03:38] VITALS: BP 143/83
[2024-11-10] MEDS ORDERED: SODIUM CHLORIDE 0.9% 500 ML IV ONE (03:55)
[2024-11-10 04:10] LABS: BASO # 0.1 10*3/uL (0.0-0.1); BASO % 0.4 % (0.0-1.0); EOS # 0.7 10*3/uL (0.0-0.4); EOS % 5.3 % (1.0-4.0); HEMATOCRIT 38.6 % (37.0-47.0); MEAN CELL VOLUME 72.6 fl (81.0-99.0); MEAN CORPUSCULAR HGB 20.9 pg (27.0-31.0); MEAN CORPUSCULAR HGB CONC 28.8 g/dl (33.0-37.0); MEAN PLATELET VOLUME 9.5 fl (9.6-12.3); MONO # 0.6 10*3/uL (0.1-1.0); MONO % 4.8 % (3.0-9.0); NEUT # 8.1 10*3/uL (2.3-7.9); NEUT % 62.2 % (47.0-73.0); NUCLEATED RED BLOOD CELL 0.2 % (0.0-0.0); PLATELET COUNT AUTOMATED 350 10*3/uL (130-400); RED BLOOD COUNT 5.32 10*6/uL (4.10-5.10); RED CELL DISTRI WIDTH 17.6 % (0-14.5); WHITE BLOOD COUNT 13.1 10*3/uL (4.8-10.8)
[2024-11-10 04:13] LABS: BILIRUBIN Negative (Negative); BLOOD Negative (Negative); CLARITY Cloudy (Clear); COLOR Yellow (Yellow); GLUCOSE 3+ (Negative); KETONE Negative (Negative); LEUKO ESTERASE 2+ (Negative); NITRITE Negative (Negative); PH 7.5 (4.5-8.0); SPECIFIC GRAVITY >= 1.030 (1.001-1.030)
[2024-11-10 04:32] LABS: ALKALINE PHOSPHATASE 88 U/L (46-116); BUN 13 mg/dl (9-23); CHLORIDE 100 mmol/L (98-107); POTASSIUM 3.7 mmol/L (3.4-5.1); SGPT/ALT 38 U/L (5-49)
[2024-11-10 04:36] LABS: BACTERIA 1+; EPITHELIAL CELLS 21-30; MUCOUS TRACE; RBC 0-2 rbc/hpf (0-2); WBC 16-20 wbc/hpf (0-5)
[2024-11-10] MEDS ORDERED: INSULIN REGULAR HUMAN IV ONE (04:40)
[2024-11-10] MEDS ORDERED: LEVOFLOXACIN 750 MG TAB PO ONE (04:40)
[2024-11-10] MEDS ORDERED: LEVOFLOXACIN500 MG PO (04:43)
[2024-11-10] MEDS ORDERED: INSULIN REGULAR, HUMAN 1 UNIT/0.01 ML IV ONE (05:00)
== END 2024-11-10 05:09 | disposition home or self-care (01) ==
LOC: ED 03:28
PROVIDERS: Emergency Medicine
DX: N39.0 Urinary tract infection, site not specified (principal); E11.65 Type 2 diabetes mellitus with hyperglycemia; E66.9 Obesity, unspecified; Z88.8 Allergy status to other drugs, medicaments and biological substances; Z79.899 Other long term (current) drug therapy; Z79.82 Long term (current) use of aspirin; Z68.30 Body mass index [BMI] 30.0-30.9, adult

== ENCOUNTER 2024-11-16 00:35 | Emergency (ER) | payer OTHER ==
[~2024-11-16] VITALS: Ht 157.4 cm; Wt 108.9 kg
[~2024-11-16 00:35] MED LIST changes: +LEVOFLOXACIN500 MG PO
[2024-11-16 00:49] VITALS: BP 136/100
[2024-11-16] MEDS ORDERED: traMADol Hydrochloride 50 MG TAB PO ONE (01:00)
[2024-11-16] MEDS ORDERED: FLUCONAZOLE 150 MG TAB PO ONE (01:00)
[2024-11-16] MEDS ORDERED: MONISTAT 745 GM V (01:04)
[2024-11-16] MEDS ORDERED: FLUCONAZOLE100 MG PO (01:04)
== END 2024-11-16 01:20 | disposition home or self-care (01) ==
LOC: ED 00:35
DX: B37.31 Acute candidiasis of vulva and vagina (principal); E11.9 Type 2 diabetes mellitus without complications; J45.909 Unspecified asthma, uncomplicated; K21.9 Gastro-esophageal reflux disease without esophagitis; F32.A Depression, unspecified; F41.9 Anxiety disorder, unspecified; Z79.82 Long term (current) use of aspirin; Z79.899 Other long term (current) drug therapy; Z88.8 Allergy status to other drugs, medicaments and biological substances

== ENCOUNTER 2024-11-30 02:03 | Emergency (ER) | payer OTHER ==
[~2024-11-30] VITALS: Ht 157.4 cm; Wt 114.8 kg
[~2024-11-30 02:03] MED LIST changes: +FLUCONAZOLE100 MG PO; +MONISTAT 745 GM V
[2024-11-30 02:25] VITALS: BP 149/71
[2024-11-30] MEDS ORDERED: METHOCARBAMOL750 M1 PO (03:39)
== END 2024-11-30 03:44 | disposition home or self-care (01) ==
LOC: ED 02:03
DX: S60.212A Contusion of left wrist, initial encounter (principal); S70.11XA Contusion of right thigh, initial encounter; E66.9 Obesity, unspecified; Z88.8 Allergy status to other drugs, medicaments and biological substances; Z79.899 Other long term (current) drug therapy; Z79.82 Long term (current) use of aspirin; Z79.84 Long term (current) use of oral hypoglycemic drugs; Z68.30 Body mass index [BMI] 30.0-30.9, adult; V28.09XA Other motorcycle driver injured in noncollision transport accident in nontraffic accident, initial encounter; Y93.I9 Activity, other involving external motion; Y92.488 Other paved roadways as the place of occurrence of the external cause; Y99.8 Other external cause status

== ENCOUNTER 2024-12-12 22:46 | Observation (INO) | payer OTHER ==
[~2024-12-12] VITALS: Wt 114.8 kg
[~2024-12-12 22:46] MED LIST changes: +METHOCARBAMOL750 M1 PO
[2024-12-12 22:55] VITALS: BP 132/88
[2024-12-12 23:42] LABS: BASO # 0.0 10*3/uL (0.0-0.1); BASO % 0.3 % (0.0-1.0); EOS # 0.7 10*3/uL (0.0-0.4); EOS % 6.1 % (1.0-4.0); MEAN CELL VOLUME 73.2 fl (81.0-99.0); MEAN CORPUSCULAR HGB 20.8 pg (27.0-31.0); MEAN PLATELET VOLUME 10.1 fl (9.6-12.3); MONO # 0.6 10*3/uL (0.1-1.0); MONO % 5.1 % (3.0-9.0); NEUT # 7.6 10*3/uL (2.3-7.9); NEUT % 64.5 % (47.0-73.0); NUCLEATED RED BLOOD CELL 0.0 % (0.0-0.0); NUCLEATED RED BLOOD CELL 0.0 10*3/uL (0.0-0.0); PLATELET COUNT AUTOMATED 301 10*3/uL (130-400); RED CELL DISTRI WIDTH 17.9 % (0-14.5)
[2024-12-13 00:08] LABS: BUN 10 mg/dl (9-23); SGPT/ALT 36 U/L (5-49)
== END 2024-12-13 04:44 | disposition left against medical advice (07) ==
LOC: ED 22:46 → EDHOLD 12-13 03:41
PROVIDERS: Emergency Medicine; ADMIT Student in an Organized Health Care Education/Training Program; ATTEND Student in an Organized Health Care Education/Training Program
DX: R07.89 Other chest pain (principal); R73.9 Hyperglycemia, unspecified; Z79.82 Long term (current) use of aspirin; Z79.899 Other long term (current) drug therapy

== ENCOUNTER 2025-01-05 01:30 | Emergency (ER) | payer OTHER ==
[2025-01-05 01:36] VITALS: BP 143/95
== END 2025-01-05 02:09 | disposition home or self-care (01) ==
LOC: ED 01:30
DX: S50.12XA Contusion of left forearm, initial encounter (principal); Z88.8 Allergy status to other drugs, medicaments and biological substances; X58.XXXA Exposure to other specified factors, initial encounter; Y93.89 Activity, other specified; Y92.89 Other specified places as the place of occurrence of the external cause; Y99.8 Other external cause status

== ENCOUNTER → 2025-01-20 | Outpatient (CLI) | payer OTHER ==
[2025-01-22 20:07] LABS: T.PALLIDUM ANTIBODIES Non Reactive (Non Reactive)
== END ==
LOC: LAB 15:07
PROVIDERS: ATTEND Internal Medicine
DX: T74.21XA Adult sexual abuse, confirmed, initial encounter (principal); X58.XXXA Exposure to other specified factors, initial encounter; Y93.89 Activity, other specified; Y92.89 Other specified places as the place of occurrence of the external cause; Y99.8 Other external cause status

== ENCOUNTER 2025-01-24 23:30 | Emergency (ER) | payer OTHER ==
[~2025-01-24] VITALS: Ht 157.4 cm; Wt 113.4 kg
[2025-01-24 23:45] VITALS: BP 161/75
[2025-01-25 00:32] LABS: BASO # 0.0 10*3/uL (0.0-0.1); BASO % 0.4 % (0.0-1.0); EOS # 0.5 10*3/uL (0.0-0.4); EOS % 4.6 % (1.0-4.0); MEAN CELL VOLUME 73.5 fl (81.0-99.0); MEAN CORPUSCULAR HGB 22.2 pg (27.0-31.0); MEAN PLATELET VOLUME 10.1 fl (9.6-12.3); MONO # 0.5 10*3/uL (0.1-1.0); MONO % 4.5 % (3.0-9.0); NEUT # 6.9 10*3/uL (2.3-7.9); NEUT % 64.3 % (47.0-73.0); NUCLEATED RED BLOOD CELL 0.0 % (0.0-0.0); NUCLEATED RED BLOOD CELL 0.0 10*3/uL (0.0-0.0); PLATELET COUNT AUTOMATED 322 10*3/uL (130-400); RED CELL DISTRI WIDTH 17.5 % (0-14.5)
[2025-01-25 00:46] LABS: BUN 8 mg/dl (9-23)
== END 2025-01-25 02:40 | disposition home or self-care (01) ==
LOC: ED 23:30
DX: R07.89 Other chest pain (principal); R42 Dizziness and giddiness; F41.9 Anxiety disorder, unspecified; J44.9 Chronic obstructive pulmonary disease, unspecified; F43.9 Reaction to severe stress, unspecified; Z88.8 Allergy status to other drugs, medicaments and biological substances; Z79.899 Other long term (current) drug therapy; Z79.82 Long term (current) use of aspirin; Z79.84 Long term (current) use of oral hypoglycemic drugs

== ENCOUNTER 2025-02-05 05:50 | Emergency (ER) | payer OTHER ==
[~2025-02-05] VITALS: Ht 157.4 cm; Wt 114.1 kg
[2025-02-05 06:31] LABS: BASO # 0.0 10*3/uL (0.0-0.1); BASO % 0.4 % (0.0-1.0); EOS # 0.6 10*3/uL (0.0-0.4); EOS % 4.9 % (1.0-4.0); MEAN CELL VOLUME 73.9 fl (81.0-99.0); MEAN CORPUSCULAR HGB 21.0 pg (27.0-31.0); MEAN PLATELET VOLUME 9.7 fl (9.6-12.3); MONO # 0.5 10*3/uL (0.1-1.0); MONO % 4.6 % (3.0-9.0); NEUT # 7.1 10*3/uL (2.3-7.9); NEUT % 63.5 % (47.0-73.0); NUCLEATED RED BLOOD CELL 0.0 % (0.0-0.0); NUCLEATED RED BLOOD CELL 0.0 10*3/uL (0.0-0.0); PLATELET COUNT AUTOMATED 309 10*3/uL (130-400); RED CELL DISTRI WIDTH 17.2 % (0-14.5)
[2025-02-05 07:00] LABS: BUN 5 mg/dl (9-23); SGPT/ALT 40 U/L (5-49)
[2025-02-05 07:52] VITALS: BP 137/74
== END 2025-02-05 08:41 | disposition home or self-care (01) ==
LOC: ED 05:50
PROVIDERS: Internal Medicine
DX: K76.0 Fatty (change of) liver, not elsewhere classified (principal); R10.11 Right upper quadrant pain; E11.9 Type 2 diabetes mellitus without complications; J45.909 Unspecified asthma, uncomplicated; F32.A Depression, unspecified; F41.9 Anxiety disorder, unspecified; Z79.82 Long term (current) use of aspirin; Z79.899 Other long term (current) drug therapy; Z88.8 Allergy status to other drugs, medicaments and biological substances; Z98.890 Other specified postprocedural states

== ENCOUNTER 2025-02-28 21:20 | Emergency (ER) | payer OTHER ==
[~2025-02-28] VITALS: Ht 165.1 cm; Wt 90.7 kg
[2025-02-28 21:30] VITALS: BP 153/87
== END 2025-02-28 23:21 | disposition home or self-care (01) ==
LOC: ED 21:20
DX: S50.11XA Contusion of right forearm, initial encounter (principal); F41.9 Anxiety disorder, unspecified; J44.9 Chronic obstructive pulmonary disease, unspecified; Z88.8 Allergy status to other drugs, medicaments and biological substances; Z79.899 Other long term (current) drug therapy; Z79.84 Long term (current) use of oral hypoglycemic drugs; Z79.82 Long term (current) use of aspirin; W22.09XA Striking against other stationary object, initial encounter; Y93.89 Activity, other specified; Y92.89 Other specified places as the place of occurrence of the external cause; Y99.8 Other external cause status

== ENCOUNTER 2025-04-15 11:35 | Emergency (ER) | payer OTHER ==
[~2025-04-15] VITALS: Ht 157.4 cm; Wt 108.9 kg
[2025-04-15 11:40] VITALS: BP 160/92
[2025-04-15] MEDS ORDERED: METHOCARBAMOL 750 MG TAB PO ONE (12:15)
== END 2025-04-15 12:26 | disposition home or self-care (01) ==
LOC: ED 11:35
DX: S29.011A Strain of muscle and tendon of front wall of thorax, initial encounter (principal); J45.909 Unspecified asthma, uncomplicated; F41.9 Anxiety disorder, unspecified; K21.9 Gastro-esophageal reflux disease without esophagitis; F32.A Depression, unspecified; E11.9 Type 2 diabetes mellitus without complications; Z88.8 Allergy status to other drugs, medicaments and biological substances; R20.2 Paresthesia of skin; X58.XXXA Exposure to other specified factors, initial encounter; Y93.89 Activity, other specified; Y92.89 Other specified places as the place of occurrence of the external cause; Y99.8 Other external cause status

== ENCOUNTER 2025-05-08 04:41 | Emergency (ER) | payer OTHER ==
[~2025-05-08] VITALS: Ht 157.4 cm; Wt 108.9 kg
[2025-05-08 04:51] VITALS: BP 145/87
[2025-05-08] MEDS ORDERED: LORazepam 1 MG TAB PO ONE (05:05)
== END 2025-05-08 06:27 | disposition home or self-care (01) ==
LOC: ED 04:41
DX: F41.9 Anxiety disorder, unspecified (principal); R07.89 Other chest pain; J45.909 Unspecified asthma, uncomplicated; F32.A Depression, unspecified; K21.9 Gastro-esophageal reflux disease without esophagitis; E11.9 Type 2 diabetes mellitus without complications; Z88.8 Allergy status to other drugs, medicaments and biological substances